=== PATIENT | male | born 1975 | race Caucasian/White ===

== ENCOUNTER 2018-03-16 09:43 | Inpatient (IN) | payer OTHER ==
[2018-03-16 10:20] VITALS: BMI 26.9
--- NOTE | 2018-03-16 11:09 | HP ---
COWS - Scale Resting Pulse: 0= [place] 80 or Below Sweatin= Chills/Flushing Restless Observation: 0= Sits Still Pupil Size: 0= Normal to Room Light Bone or Joint Aches: 1= Mild Discomfort Runny Nose/ Eye Tearin= Nasal Congestion GI Upset > 30mins: 2= Nausea/Diarrhea Tremor Observation: 2= Slight Tremor Visible Yawning Observation: 1= 1-2x During Session Anxiety or Irritability: 1=Feels Anxious/Irritable Goose Flesh Skin: 0=Smooth Skin COWS Score: 9 Admission ROS S - HPI Chief Complaint: I'm tired, I want to stop using Allergies/Adverse Reactions: Allergies Allergy/AdvReac Type Severity Reaction Status Date / Time divalproex sodium Allergy Verified 03/16/18 10:59 [From Depakote] fish derived Allergy Verified 03/16/18 10:59 History of Present Illness: 42 yo gentleman here for detox from opiates - first time here. Indicated he was in [facility] with IV antibiotics for wound care in foot related IV drug use - he states it was in January and the [facility]NS has been coming to change his dressing daily. Denies seizures, does have black outs, denies drinking alcohol. States he was in a methadone program but left it and used heroin and bought methadone on street but wants to go back to the program. Exam Limitations: Clinical Condition, Physical Impairment - Ebola screening Have you traveled outside of the country in the last 21 days: No (N) Have you had contact with anyone from an Ebola affected area: No Have you been sick,other than usual withdrawal symptoms: No Do you have a fever: No - Review of Systems Constitutional: Loss of Appetite, Malaise, Changes in sleep, Weakness EENT: reports: Nose Congestion Respiratory: reports: No Symptoms reported Cardiac: reports: No Symptoms Reported GI: reports: Nausea, Poor Appetite : reports: Dysuria Musculoskeletal: reports: Back Pain, Muscle Pain Integumentary: reports: Dryness, Other (left foot wound; flaky skin both hands and legs) Neuro: reports: Headache, Tremors Endocrine: reports: No Symptoms Reported Hematology: reports: No Symptoms Reported Psychiatric: reports: Judgement Intact, Mood/Affect Appropiate, Anxious Other Systems: Reviewed and Negative Patient History - Patient Medical History Hx Asthma: No Hx Cardiac Disorders: No Hx Hypertension: Yes Hx Hypercholesterolemia: No Hx Pacemaker: No Hx Seizures: No Hx Diabetes: Yes (oral meds, [id number]) Hx Gastrointestinal Disorders: No Hx Liver Disease: Yes (untreated hepatitis C) Hx Genitourinary Disorders: No Hx Sexually Transmitted Disorders: No Hx Renal Disease (ESRD): No Hx Thyroid Disease: No Hx Human Immunodeficiency Virus (HIV): No Hx Hepatitis C: Yes (never treated) Hx Depression: No Hx Suicide Attempt: No Hx Bipolar Disorder: No Hx Schizophrenia: Yes - Patient Surgical History Past Surgical History: Yes Hx Orthopedic Surgery: Yes (L FOOT SX (ABSCESS DUE INF NEEDLE)) - PPD History Previous Implant?: Yes Documented Results: Negative w/o proof Implanted On Prior [facility] Admission?: No PPD to be Administered?: Yes - Reproductive History Patient is a Female of Child Bearing Age (11 -55 yrs old): No (male) - Smoking Cessation Smoking history: Current every day smoker Have you smoked in the past 12 months: Yes Aproximately how many cigarettes per day: 10 Initiated information on smoking cessation: Yes 'Breaking Loose' booklet given: 03/16/18 (give on floor) - Substances Abused Cocaine Route: Smoking Frequency: Daily Amount used: 5 BAGS Age of first use: 20 Date of Last Use: 03/09/18 Heroin Route: Injection Frequency: Daily Amount used: 10 BAGS Age of first use: 15 Date of Last Use: 03/09/18 Non-Rx Methadone Route: Oral Frequency: 3-6 times per week Amount used: 40MG Age of first use: 20 Date of Last Use: 03/15/18 Family Disease History - Family Disease History Family Disease History: Diabetes: Mother (living, ), Heart Disease: Father ( - ), Mother, Other: Father, Mother, Brother (two healthy), Sister (two healthy), Daughter (four - healthy) Admission Physical Exam BHS - Vital Signs Vital Signs: Vital Signs - 24 hr 03/16/18 10:18 Temperature 98.8 F Pulse Rate 78 Respiratory 18 Rate Blood Pressure 122/71 - Physical General Appearance: Yes: Nourished, Appropriately Dressed, Moderate Distress, Tremorous, Anxious HEENTM: Yes: EOMI, Hearing grossly Normal, Normocephalic, Normal Voice, Pharynx Normal Respiratory: Yes: Normal Breath Sounds, No Respiratory Distress Neck: Yes: No masses,lesions,Nodules, Supple Breast: Yes: Breast Exam Deferred Cardiology: Yes: Regular Rhythm, Regular Rate Abdominal: Yes: Soft Genitourinary: Yes: Dysuria Back: Yes: Normal Inspection Musculoskeletal: Yes: Gait Steady, Back pain, Muscle Pain Extremities: Yes: Normal Range of Motion, Pedal Edema, Other (left foot with bandage - serena wrap - large triangular metatarsal wound - stage II - granulating tissue with serosanguinous exudate; dorsal aspects of both hands with old, healed abscesses) Neurological: Yes: Fully Oriented, Alert, Motor Strength 5/5, Normal Mood/Affect , Normal Response Integumentary: Yes: Dry, Warm, Track [place] (both arms, neck, hands), Other ( left foot wound, cast boot) Lymphatic: Yes: Within Normal Limits - Addiitonal Findings: CLH=[id number] - Diagnostic (1) Opioid dependence with withdrawal Current Visit: Yes Status: Chronic (2) Nicotine dependence Current Visit: Yes Status: Chronic Qualifiers: Nicotine product type: cigarettes Substance use status: uncomplicated Qualified Code(s): F17.210 - Nicotine dependence, cigarettes, uncomplicated (3) Diabetes mellitus treated with oral medication Current Visit: Yes Status: Chronic (4) Open wound of left foot Current Visit: Yes Status: Acute Qualifiers: Encounter type: subsequent encounter Qualified Code(s): S91.302D - Unspecified open wound, left foot, subsequent encounter (5) Dry skin Current Visit: Yes Status: Chronic (6) Hepatitis C Current Visit: Yes Status: Acute Qualifiers: Viral hepatitis chronicity: chronic Hepatic coma status: without hepatic coma Qualified Code(s): B18.2 - Chronic viral hepatitis C Cleared for Admission [facility] - Detox or Rehab [facility] Level of Care: Medically Managed Detox Regimen/Protocol: Methadone [facility] Breath Alcohol Content Breath Alcohol Content: 0 Urine Drug Screen - Results Drug Screen Negative: No Urine Drug Screen Results: MTD-Methadone
[2018-03-16] MEDS ORDERED: MENTHOL/PHENOL 1 EACH UD MM PRN (11:27)
[2018-03-16] MEDS ORDERED: MAGNESIUM CITRATE 300 ML BOTTLE PO PRN (11:27)
[2018-03-16] MEDS ORDERED: LOPERAMIDE HCL 2 MG CAPSULE PO PRN (11:27)
[2018-03-16] MEDS ORDERED: MAGNESIUM HYDROX 2400MG/30ML ORAL SUSPENSION 30 ML CUP PO PRN (11:27)
[2018-03-16] MEDS ORDERED: P-EPHED 60MG/TRIPROLIDI 2.5MG TABLET PO PRN (11:27)
[2018-03-16] MEDS ORDERED: MAG HYDROX/AL HYDROX/SIMETH 30 ML UNIT-DOSE CUP PO PRN (11:27)
[2018-03-16] MEDS ORDERED: guaiFENesin/D-METHORPHAN HB 10 ML UNIT-DOSE CUPS PO PRN (11:27)
[2018-03-16] MEDS ORDERED: metFORMIN HCL 500 MG TABLET (FP) PO SCH (11:30)
[2018-03-16] MEDS ORDERED: COLLOIDAL OATMEAL 1 BAR EACH TP PRN (11:36)
[2018-03-16] MEDS ORDERED: METHADONE HCL 10 MG TABLET (FOR DETOX USE ONLY) PO ONE ×2 (12:30→23:00)
[2018-03-16] MEDS: IBUPROFEN 400 MG TABLET (FP) PO PRN (12:36)
[2018-03-16] MEDS: NICOTINE 21 MG/24 HOURS TOPICAL PATCH TD SCH (12:37)
[2018-03-16 21:02] LABS: URINE APPEARANCE SLCLOUDY; URINE BILIRUBIN NEGATIVE (<2.0 mg/dL); URINE COLOR DKYELLOW; URINE GLUCOSE (UA) NEGATIVE (NEGATIVE); URINE KETONE NEGATIVE (NEGATIVE); URINE LEUK ESTERASE NEGATIVE (NEGATIVE); URINE NITRITE NEGATIVE (NEGATIVE); URINE PROTEIN NEGATIVE (NEGATIVE); URINE UROBILINOGEN 4.0 E.U/dl mg/dL (0.2-1.0)
[2018-03-16] MEDS ORDERED: MELATONIN 5 MG TABLETS PO PRN (22:00)
[2018-03-16] MEDS: THIAMINE HCL 100 MG TABLET (FP) PO SCH (22:29)
[2018-03-16] MEDS: diazePAM 5 MG TABLET PO PRN (22:30)
[2018-03-17] MEDS: diazePAM 5 MG TABLET PO PRN ×4 (06:29→22:35)
[2018-03-17] MEDS: metFORMIN HCL 500 MG TABLET (FP) PO SCH ×2 (06:30→17:14)
[2018-03-17] MEDS ORDERED: METHADONE HCL 10 MG TABLET (FOR DETOX USE ONLY) PO ONE (10:00)
[2018-03-17] MEDS: PRENATAL VITAMINS W/ FOLIC ACID TABLET (FP) PO SCH (11:05)
[2018-03-17] MEDS: NICOTINE 21 MG/24 HOURS TOPICAL PATCH TD SCH (11:06)
[2018-03-17 11:22] LABS: HEMATOCRIT 34.5 % (35.4-49); HEMOGLOBIN 11.6 GM/dL (11.7-16.9); MCHC 33.6 g/dl (32.0-35.9); MEAN CELL VOLUME 95.2 fl (80-96); MEAN PLT VOLUME 9.6 fl (7.5-11.1); PLATELET COUNT 140 K/MM3 (134-434); RBC 3.63 M/mm3 (4.00-5.60); RDW 14.2 % (11.9-15.9); WHITE BLOOD COUNT 3.5 K/mm3 (4.0-10.0)
[2018-03-17 11:26] LABS: ALBUMIN 3.4 g/dl (3.4-5.0); ALK PHOS 140 U/L (45-117); ANION GAP 9 MMOL/L (8-16); BILIRUBIN,TOTAL 0.5 mg/dL (0.2-1); BLOOD UREA NITROGEN 12 mg/dL (7-18); CALCIUM 8.8 mg/dL (8.5-10.1); CHLORIDE 100 mmol/L (98-107); CO2 26 mmol/L (21-32); CREATININE 0.8 mg/dL (0.55-1.3); GLUCOSE,RANDOM 147 mg/dL (74-106); POTASSIUM 4.1 mmol/L (3.5-5.1); SGOT/AST 24 U/L (15-37); SGPT/ALT 36 U/L (13-61); SODIUM 136 mmol/L (136-145); TOT PROT 8.1 g/dl (6.4-8.2)
[2018-03-17] MEDS: IBUPROFEN 400 MG TABLET (FP) PO PRN (12:02)
--- NOTE | 2018-03-17 14:56 | PN ---
BHS COWS - Scale Resting Pulse: 0= [place] 80 or Below Sweatin= Chills/Flushing Restless Observation: 1= Difficult to Sit Still Pupil Size: 1= Pupils >than Normal Bone or Joint Aches: 1= Mild Discomfort Runny Nose/ Eye Tearin= Nasal Congestion GI Upset > 30mins: 0= None Tremor Observation of Outstretched Hands: 1= Tremor [place], Not Seen Yawning Observation: 1= 1-2x During Session Anxiety or Irritability: 1=Feels Anxious/Irritable Goose Flesh Skin: 0=Smooth Skin COWS Score: 8 S Progress Note (SOAP) Subjective: ambulate with walker left foot dorsal D+C x 2 weeks ago due to IV heroin dressing clean and intact dry flaky skin continue wet to dry dressing change bid as ordered body aches joints pain tremor Objective: 03/17/18 15:01 Vital Signs Temperature 98.2 F 03/17/18 14:15 Pulse Rate 78 03/17/18 14:15 Respiratory Rate 20 03/17/18 14:15 Blood Pressure 126/70 03/17/18 14:15 O2 Sat by Pulse Oximetry (%) Laboratory Last Values WBC 3.5 K/mm3 (4.0-10.0) L 03/17/18 07:35 RBC 3.63 M/mm3 (4.00-5.60) L 03/17/18 07:35 Hgb 11.6 GM/dL (11.7-16.9) L 03/17/18 07:35 Hct 34.5 % (35.4-49) L 03/17/18 07:35 MCV 95.2 fl (80-96) 03/17/18 07:35 MCH 32.0 pg (25.7-33.7) 03/17/18 07:35 MCHC 33.6 g/dl (32.0-35.9) 03/17/18 07:35 RDW 14.2 % (11.9-15.9) 03/17/18 07:35 Plt Count 140 K/MM3 (134-434) 03/17/18 07:35 MPV 9.6 fl (7.5-11.1) 03/17/18 07:35 Sodium 136 mmol/L (136-145) 03/17/18 07:35 Potassium 4.1 mmol/L (3.5-5.1) 03/17/18 07:35 Chloride 100 mmol/L (98-107) 03/17/18 07:35 Carbon Dioxide 26 mmol/L (21-32) 03/17/18 07:35 Anion Gap 9 MMOL/L (8-16) 03/17/18 07:35 BUN 12 mg/dL (7-18) 03/17/18 07:35 Creatinine 0.8 mg/dL (0.55-1.3) 03/17/18 07:35 Creat Clearance w eGFR > 60 (>60) 03/17/18 07:35 POC Glucometer 111 UNITS (80-120) 03/17/18 06:27 Random Glucose 147 mg/dL (74-106) H 03/17/18 07:35 Calcium 8.8 mg/dL (8.5-10.1) 03/17/18 07:35 Total Bilirubin 0.5 mg/dL (0.2-1) 03/17/18 07:35 AST 24 U/L (15-37) 03/17/18 07:35 ALT 36 U/L (13-61) 03/17/18 07:35 Alkaline Phosphatase 140 U/L (45-117) H 03/17/18 07:35 Total Protein 8.1 g/dl (6.4-8.2) 03/17/18 07:35 Albumin 3.4 g/dl (3.4-5.0) 03/17/18 07:35 Urine Color Dkyellow 03/16/18 14:46 Urine Appearance Slcloudy 03/16/18 14:46 Urine pH 7.0 (5.0-8.0) 03/16/18 14:46 Ur Specific [place] 1.027 (1.010-1.035) 03/16/18 14:46 Urine Protein Negative (NEGATIVE) 03/16/18 14:46 Urine Glucose (UA) Negative (NEGATIVE) 03/16/18 14:46 Urine Ketones Negative (NEGATIVE) 03/16/18 14:46 Urine Blood Negative (NEGATIVE) 03/16/18 14:46 Urine Nitrite Negative (NEGATIVE) 03/16/18 14:46 Urine Bilirubin Negative (<2.0 mg/dL) 03/16/18 14:46 Urine Urobilinogen 4.0 e.u/dl mg/dL (0.2-1.0) 03/16/18 14:46 Ur Leukocyte Esterase Negative (NEGATIVE) 03/16/18 14:46 RPR Titer Nonreactive (NONREACTIVE) 03/17/18 07:35 lab noted discuss poorly controlled serum glycemia related slow heal would Assessment: 03/17/18 15:05 withdrawal sx 03/17/18 15:06 left foot IV heroin site would care Plan: continue detox continue dressing change
[2018-03-17] MEDS: MINERAL OIL/PETROLAT/WATER TOPICAL CREAM 113 GM JAR TP SCH (15:40)
--- NOTE | 2018-03-17 19:40 | EKG ---
Test Reason : Blood Pressure : / mmHG Vent. Rate : 073 BPM Atrial Rate : 073 BPM P-R Int : 156 ms QRS Dur : 078 ms QT Int : 366 ms P-R-T Axes : 057 018 038 degrees QTc Int : 403 ms NORMAL SINUS RHYTHM NORMAL ECG NO PREVIOUS ECGS AVAILABLE Confirmed by JAIME ZHU MD ([id number]) on 03/17/2018 7:40:12 PM Referred By: Confirmed By:JAMIE ZHU MD
[2018-03-17] MEDS: THIAMINE HCL 100 MG TABLET (FP) PO SCH (22:35)
[2018-03-18] MEDS: diazePAM 5 MG TABLET PO PRN ×4 (05:59→22:29)
[2018-03-18] MEDS: metFORMIN HCL 500 MG TABLET (FP) PO SCH ×2 (06:00→16:51)
[2018-03-18] MEDS ORDERED: METHADONE HCL 5 MG TABLET (FOR DETOX USE ONLY) PO ONE (10:00)
[2018-03-18] MEDS: PRENATAL VITAMINS W/ FOLIC ACID TABLET (FP) PO SCH (10:41)
[2018-03-18] MEDS: MINERAL OIL/PETROLAT/WATER TOPICAL CREAM 113 GM JAR TP SCH (10:42)
[2018-03-18] MEDS: NICOTINE 21 MG/24 HOURS TOPICAL PATCH TD SCH (10:42)
--- NOTE | 2018-03-18 14:46 | PN ---
BHS COWS - Scale Resting Pulse: 2= [place] 101-120 Sweatin= Chills/Flushing Restless Observation: 0= Sits Still Pupil Size: 0= Normal to Room Light Bone or Joint Aches: 0= None Runny Nose/ Eye Tearin= Nasal Congestion GI Upset > 30mins: 0= None Tremor Observation of Outstretched Hands: 2= Slight Tremor Visible Yawning Observation: 1= 1-2x During Session Anxiety or Irritability: 0= None Goose Flesh Skin: 3=Piloerection COWS Score: 10 BHS Progress Note (SOAP) Subjective: Fatigue, Tremors, Interrupted Sleep. Objective: PATIENT A & O X 3. IN NO ACUTE DISTRESS. 03/18/18 14:43 Vital Signs Temperature 98.2 F 03/18/18 13:24 Pulse Rate 101 H 03/18/18 13:24 Respiratory Rate 20 03/18/18 13:24 Blood Pressure 136/72 03/18/18 13:24 O2 Sat by Pulse Oximetry (%) Laboratory Tests 03/16/18 03/16/18 03/16/18 11:39 14:46 16:49 WBC RBC Hgb Hct MCV MCH MCHC RDW Plt Count MPV Sodium Potassium Chloride Carbon Dioxide Anion Gap BUN Creatinine Creat Clearance w eGFR POC Glucometer 135 118 Random Glucose Calcium Total Bilirubin AST ALT Alkaline Phosphatase Total Protein Albumin Urine Color Dkyellow Urine Appearance Slcloudy Urine pH 7.0 Ur Specific [place] 1.027 Urine Protein Negative Urine Glucose (UA) Negative Urine Ketones Negative Urine Blood Negative Urine Nitrite Negative Urine Bilirubin Negative Urine Urobilinogen 4.0 e.u/dl Ur Leukocyte Esterase Negative RPR Titer 03/17/18 03/17/18 03/17/18 06:27 07:35 07:35 WBC 3.5 L RBC 3.63 L Hgb 11.6 L Hct 34.5 L MCV 95.2 MCH 32.0 MCHC 33.6 RDW 14.2 Plt Count 140 MPV 9.6 Sodium 136 Potassium 4.1 Chloride 100 Carbon Dioxide 26 Anion Gap 9 BUN 12 Creatinine 0.8 Creat Clearance w eGFR > 60 POC Glucometer 111 Random Glucose 147 H Calcium 8.8 Total Bilirubin 0.5 AST 24 ALT 36 Alkaline Phosphatase 140 H Total Protein 8.1 Albumin 3.4 Urine Color Urine Appearance Urine pH Ur Specific [place] Urine Protein Urine Glucose (UA) Urine Ketones Urine Blood Urine Nitrite Urine Bilirubin Urine Urobilinogen Ur Leukocyte Esterase RPR Titer 03/17/18 03/17/18 03/18/18 07:35 16:47 05:57 WBC RBC Hgb Hct MCV MCH MCHC RDW Plt Count MPV Sodium Potassium Chloride Carbon Dioxide Anion Gap BUN Creatinine Creat Clearance w eGFR POC Glucometer 119 116 Random Glucose Calcium Total Bilirubin AST ALT Alkaline Phosphatase Total Protein Albumin Urine Color Urine Appearance Urine pH Ur Specific [place] Urine Protein Urine Glucose (UA) Urine Ketones Urine Blood Urine Nitrite Urine Bilirubin Urine Urobilinogen Ur Leukocyte Esterase RPR Titer Nonreactive LABS NOTED. Assessment: 03/18/18 14:44 WITHDRAWAL SYMPTOMS. ANEMIA. LEUKOPENIA. 03/18/18 14:45 Plan: CONTINUE DETOX. INCREASE DAILY PO FLUID INTAKE. ENCOURAGE AMBULATION.
[2018-03-18] MEDS: THIAMINE HCL 100 MG TABLET (FP) PO SCH (22:29)
[2018-03-19] MEDS: metFORMIN HCL 500 MG TABLET (FP) PO SCH ×2 (07:44→17:00)
[2018-03-19] MEDS ORDERED: METHADONE HCL 5 MG TABLET (FOR DETOX USE ONLY) PO ONE (10:00)
[2018-03-19] MEDS: IBUPROFEN 400 MG TABLET (FP) PO PRN (10:19)
[2018-03-19] MEDS: PRENATAL VITAMINS W/ FOLIC ACID TABLET (FP) PO SCH (10:19)
[2018-03-19] MEDS: NICOTINE 21 MG/24 HOURS TOPICAL PATCH TD SCH (10:19)
[2018-03-19] MEDS: MINERAL OIL/PETROLAT/WATER TOPICAL CREAM 113 GM JAR TP SCH ×2 (10:20→14:00)
[2018-03-19] MEDS: diazePAM 5 MG TABLET PO PRN (10:20)
--- NOTE | 2018-03-19 13:21 | PN ---
S Progress Note (SOAP) Subjective: Interrupted Sleep, Body Aches. Objective: PATIENT A & O X 3. IN NO ACUTE DISTRESS. WOUND (INJECTION SITE) ON DORSUM OF LEFT FOOT NOTED TO BE HEALING WELL - MAINTAIN CURRENT WOUND CARE REGIMEN. INJECTION SITE WOUNDS NOTED ON DORSUM OF BILATERAL HANDS. NO SWELLING, ERYTHEMA , SIGNS OF INFECTION NOTED AT EITHER SITE. 03/19/18 13:16 Vital Signs Temperature 97.7 F 03/19/18 09:42 Pulse Rate 85 03/19/18 09:42 Respiratory Rate 18 03/19/18 09:42 Blood Pressure 124/67 03/19/18 09:42 O2 Sat by Pulse Oximetry (%) Laboratory Tests 03/16/18 03/16/18 03/16/18 11:39 14:46 16:49 WBC RBC Hgb Hct MCV MCH MCHC RDW Plt Count MPV Sodium Potassium Chloride Carbon Dioxide Anion Gap BUN Creatinine Creat Clearance w eGFR POC Glucometer 135 118 Random Glucose Calcium Total Bilirubin AST ALT Alkaline Phosphatase Total Protein Albumin Urine Color Dkyellow Urine Appearance Slcloudy Urine pH 7.0 Ur Specific [place] 1.027 Urine Protein Negative Urine Glucose (UA) Negative Urine Ketones Negative Urine Blood Negative Urine Nitrite Negative Urine Bilirubin Negative Urine Urobilinogen 4.0 e.u/dl Ur Leukocyte Esterase Negative RPR Titer 03/17/18 03/17/18 03/17/18 06:27 07:35 07:35 WBC 3.5 L RBC 3.63 L Hgb 11.6 L Hct 34.5 L MCV 95.2 MCH 32.0 MCHC 33.6 RDW 14.2 Plt Count 140 MPV 9.6 Sodium 136 Potassium 4.1 Chloride 100 Carbon Dioxide 26 Anion Gap 9 BUN 12 Creatinine 0.8 Creat Clearance w eGFR > 60 POC Glucometer 111 Random Glucose 147 H Calcium 8.8 Total Bilirubin 0.5 AST 24 ALT 36 Alkaline Phosphatase 140 H Total Protein 8.1 Albumin 3.4 Urine Color Urine Appearance Urine pH Ur Specific [place] Urine Protein Urine Glucose (UA) Urine Ketones Urine Blood Urine Nitrite Urine Bilirubin Urine Urobilinogen Ur Leukocyte Esterase RPR Titer 03/17/18 03/17/18 03/18/18 07:35 16:47 05:57 WBC RBC Hgb Hct MCV MCH MCHC RDW Plt Count MPV Sodium Potassium Chloride Carbon Dioxide Anion Gap BUN Creatinine Creat Clearance w eGFR POC Glucometer 119 116 Random Glucose Calcium Total Bilirubin AST ALT Alkaline Phosphatase Total Protein Albumin Urine Color Urine Appearance Urine pH Ur Specific [place] Urine Protein Urine Glucose (UA) Urine Ketones Urine Blood Urine Nitrite Urine Bilirubin Urine Urobilinogen Ur Leukocyte Esterase RPR Titer Nonreactive 03/18/18 03/19/18 03/19/18 16:25 07:40 11:17 WBC RBC Hgb Hct MCV MCH MCHC RDW Plt Count MPV Sodium Potassium Chloride Carbon Dioxide Anion Gap BUN Creatinine Creat Clearance w eGFR POC Glucometer 126 98 76 Random Glucose Calcium Total Bilirubin AST ALT Alkaline Phosphatase Total Protein Albumin Urine Color Urine Appearance Urine pH Ur Specific [place] Urine Protein Urine Glucose (UA) Urine Ketones Urine Blood Urine Nitrite Urine Bilirubin Urine Urobilinogen Ur Leukocyte Esterase RPR Titer LABS NOTED. 03/19/18 13:17 Assessment: 03/19/18 13:19 WITHDRAWAL SYMPTOMS. Plan: CONTINUE DETOX. INCREASE DAILY PO FLUID INTAKE. MAINTAIN CURRENT WOUND CARE REGIMEN (WET-TO-DRY) DRESSING FOR INJECTION SITE WOUND ON LEFT FOOT.
[2018-03-19] MEDS: BACITRACIN 0.9 GM PACKET TP SCH ×2 (14:00→22:54)
--- NOTE | 2018-03-19 14:08 | CONSULT ---
[facility] Psychiatric Consult - Data Date of interview: 03/19/18 Admission source: [facility] Identifying data: Patient is a 42 year old single male, without chilren, unemployed, and currently homeless. This is patient's first admission to detox at [facility]. Patient admitted to for opioid dependence. Substance Abuse History: Smoking Cessation. Smoking history: Current every day smoker. Have you smoked in the past 12 months: Yes. Aproximately how many cigarettes per day: 10. Initiated information on smoking cessation: Yes. ' Breaking Loose' booklet given: 03/16/18 (give on floor). - Substances Abused. Cocaine. Route: Smoking. Frequency: Daily. Amount used: 5 BAGS. Age of first use: 20. Date of Last Use: 03/09/18. Heroin. Route: Injection. Frequency: Daily. Amount used: 10 BAGS. Age of first use: 15. Date of Last Use: 03/09/18. Non-Rx Methadone. Route: Oral. Frequency: 3-6 times per week. Amount used: 40MG. Age of first use: 20. Date of Last Use: 03/15/18 Medical History: Hypertension, diabetes, Hep C, Left foot surgery Psychiatric History: Patient reports multiple psychatric hospitalizations, most recently at [facility]. He is also known to [facility], [place] and [facility] in [place], [place]. States he has been prescribed klonopin, ambien, and seroquel in the past. He denies current outpatient psychiatric care. At present he reports difficulty sleeping. Physical/Sexual Abuse/Trauma History: denies. Mental Status Exam - Mental Status Exam Alert and Oriented to: Time (Patient ambulates with a cane. Had a procedure done to his left foot last month.), Place, Person Cognitive Function: Good Patient Appearance: Well Groomed Mood: Euthymic Affect: Mood Congruent Patient Behavior: Cooperative Speech Pattern: Clear, Appropriate Voice Loudness: Normal Thought Process: Intact, Goal Oriented Thought Disorder: Not Present Hallucinations: Denies Suicidal Ideation: Denies Homicidal Ideation: Denies Insight/Judgement: Poor Sleep: Poorly Appetite: Fair Muscle strength/Tone: Normal Gait/Station: Other Psychiatric Findings - Problem List ([place] 1, 2,3) (1) Substance-induced sleep disorder Current Visit: Yes Status: Acute (2) Nicotine dependence Current Visit: Yes Status: Chronic Qualifiers: Nicotine product type: cigarettes Substance use status: uncomplicated Qualified Code(s): F17.210 - Nicotine dependence, cigarettes, uncomplicated (3) Opioid dependence with withdrawal Current Visit: Yes Status: Acute - Initial Treatment Plan Initial Treatment Plan: Psychoeducation provided. Detoxification in progress. Will order Seroquel 50mg qhs. Mr. Simmons reports favorable effects from previously accepting seroquel. Benefits and side effects discussed. Verbal consent given.
[2018-03-19] MEDS: QUEtiapine FUMARATE 50 MG TABLET PO SCH (22:27)
[2018-03-19] MEDS: THIAMINE HCL 100 MG TABLET (FP) PO SCH (22:27)
[2018-03-20] MEDS: metFORMIN HCL 500 MG TABLET (FP) PO SCH ×2 (07:55→16:43)
[2018-03-20] MEDS ORDERED: METHADONE HCL 10 MG TABLET (FOR DETOX USE ONLY) PO ONE (10:00)
[2018-03-20] MEDS: PRENATAL VITAMINS W/ FOLIC ACID TABLET (FP) PO SCH (10:26)
[2018-03-20] MEDS: BACITRACIN 0.9 GM PACKET TP SCH ×2 (10:27→22:48)
[2018-03-20] MEDS: NICOTINE 21 MG/24 HOURS TOPICAL PATCH TD SCH (10:27)
[2018-03-20] MEDS: MINERAL OIL/PETROLAT/WATER TOPICAL CREAM 113 GM JAR TP SCH (10:27)
--- NOTE | 2018-03-20 10:42 | PN ---
BHS Progress Note (SOAP) Subjective: Interrupted Sleep, Body Aches. Objective: PATIENT A & O X 3. IN NO ACUTE DISTRESS. NO SIGNS OF INFECTION NOTED AT SITE OF WOUND ON DORSUM OF LEFT FOOT. PATIENT DENIES PAIN AT SITE. 03/20/18 10:42 Vital Signs Temperature 98.1 F 03/20/18 09:15 Pulse Rate 95 H 03/20/18 09:15 Respiratory Rate 18 03/20/18 09:15 Blood Pressure 121/73 03/20/18 09:15 O2 Sat by Pulse Oximetry (%) Laboratory Tests 03/16/18 03/16/18 03/16/18 11:39 14:46 16:49 WBC RBC Hgb Hct MCV MCH MCHC RDW Plt Count MPV Sodium Potassium Chloride Carbon Dioxide Anion Gap BUN Creatinine Creat Clearance w eGFR POC Glucometer 135 118 Random Glucose Calcium Total Bilirubin AST ALT Alkaline Phosphatase Total Protein Albumin Urine Color Dkyellow Urine Appearance Slcloudy Urine pH 7.0 Ur Specific [place] 1.027 Urine Protein Negative Urine Glucose (UA) Negative Urine Ketones Negative Urine Blood Negative Urine Nitrite Negative Urine Bilirubin Negative Urine Urobilinogen 4.0 e.u/dl Ur Leukocyte Esterase Negative RPR Titer 03/17/18 03/17/18 03/17/18 06:27 07:35 07:35 WBC 3.5 L RBC 3.63 L Hgb 11.6 L Hct 34.5 L MCV 95.2 MCH 32.0 MCHC 33.6 RDW 14.2 Plt Count 140 MPV 9.6 Sodium 136 Potassium 4.1 Chloride 100 Carbon Dioxide 26 Anion Gap 9 BUN 12 Creatinine 0.8 Creat Clearance w eGFR > 60 POC Glucometer 111 Random Glucose 147 H Calcium 8.8 Total Bilirubin 0.5 AST 24 ALT 36 Alkaline Phosphatase 140 H Total Protein 8.1 Albumin 3.4 Urine Color Urine Appearance Urine pH Ur Specific [place] Urine Protein Urine Glucose (UA) Urine Ketones Urine Blood Urine Nitrite Urine Bilirubin Urine Urobilinogen Ur Leukocyte Esterase RPR Titer 03/17/18 03/17/18 03/18/18 07:35 16:47 05:57 WBC RBC Hgb Hct MCV MCH MCHC RDW Plt Count MPV Sodium Potassium Chloride Carbon Dioxide Anion Gap BUN Creatinine Creat Clearance w eGFR POC Glucometer 119 116 Random Glucose Calcium Total Bilirubin AST ALT Alkaline Phosphatase Total Protein Albumin Urine Color Urine Appearance Urine pH Ur Specific [place] Urine Protein Urine Glucose (UA) Urine Ketones Urine Blood Urine Nitrite Urine Bilirubin Urine Urobilinogen Ur Leukocyte Esterase RPR Titer Nonreactive 03/18/18 03/19/18 03/19/18 16:25 07:40 11:17 WBC RBC Hgb Hct MCV MCH MCHC RDW Plt Count MPV Sodium Potassium Chloride Carbon Dioxide Anion Gap BUN Creatinine Creat Clearance w eGFR POC Glucometer 126 98 76 Random Glucose Calcium Total Bilirubin AST ALT Alkaline Phosphatase Total Protein Albumin Urine Color Urine Appearance Urine pH Ur Specific [place] Urine Protein Urine Glucose (UA) Urine Ketones Urine Blood Urine Nitrite Urine Bilirubin Urine Urobilinogen Ur Leukocyte Esterase RPR Titer 03/19/18 03/19/18 03/20/18 16:33 22:26 06:40 WBC RBC Hgb Hct MCV MCH MCHC RDW Plt Count MPV Sodium Potassium Chloride Carbon Dioxide Anion Gap BUN Creatinine Creat Clearance w eGFR POC Glucometer 109 132 111 Random Glucose Calcium Total Bilirubin AST ALT Alkaline Phosphatase Total Protein Albumin Urine Color Urine Appearance Urine pH Ur Specific [place] Urine Protein Urine Glucose (UA) Urine Ketones Urine Blood Urine Nitrite Urine Bilirubin Urine Urobilinogen Ur Leukocyte Esterase RPR Titer LABS NOTED. 03/20/18 10:43 Assessment: 03/20/18 10:43 WITHDRAWAL SYMPTOMS. LEUKOPENIA. ANEMIA. 03/20/18 10:45 Plan: CONTINUE DETOX. CONTINUE WOUND CARE FOR LEFT FOOT DIRECTED. PATIENT SCHEDULED FOR D/C TOMORROW .
[2018-03-20] MEDS: IBUPROFEN 400 MG TABLET (FP) PO PRN (14:12)
[2018-03-20] MEDS: ACETAMINOPHEN 325 MG TABLET (FP) PO PRN (18:16)
[2018-03-20] MEDS ORDERED: IBUPROFEN 400 MG TABLET (FP) PO PRN (22:23)
--- NOTE | 2018-03-20 22:38 | PN ---
[facility] Progress Note Note: S: Patient dangling foot over side of bed and states foot hurts a lot. Sharp, throbbing pain is a "10". States wound is the result of injection drug use. O: Aries bandage and dressing removed. Open wound dorsum (L) foot, andressa shape approx 11 cm x 7 cm, with bright beefy red granulation tissue w/ sero- sanguineous drainage. (L) pedal pulse present. C/o tenderness upon palpation. Foot w/taut edema. Cap refill > 5 sec. Foot color of (L) foot darker than (R). Ambulating steadily with use of a walker. Vital Signs 03/20/18 03/20/18 17:06 21:24 Temperature 98.2 F 98.1 F Pulse Rate 87 88 Respiratory 18 18 Rate Blood Pressure 114/67 115/72 CBC WBC 3.5 K/mm3 (4.0-10.0) L 03/17/18 07:35 RBC 3.63 M/mm3 (4.00-5.60) L 03/17/18 07:35 Hgb 11.6 GM/dL (11.7-16.9) L 03/17/18 07:35 Hct 34.5 % (35.4-49) L 03/17/18 07:35 MCV 95.2 fl (80-96) 03/17/18 07:35 MCH 32.0 pg (25.7-33.7) 03/17/18 07:35 MCHC 33.6 g/dl (32.0-35.9) 03/17/18 07:35 RDW 14.2 % (11.9-15.9) 03/17/18 07:35 Plt Count 140 K/MM3 (134-434) 03/17/18 07:35 MPV 9.6 fl (7.5-11.1) 03/17/18 07:35 A: Open wound P: Explained that dangling foot increases swelling of foot and thereby increases pain. Wet to Dry gauze dressing w/ Normal Saline. Apply gauze roller bandage and loosely apply aries bandage. Encourage to keep foot elevated. Encourage f/u w/ [facility] and [facility] upon discharge. Increase ibuprofen to 800 mg.
[2018-03-20] MEDS: QUEtiapine FUMARATE 50 MG TABLET PO SCH (22:46)
[2018-03-20] MEDS: THIAMINE HCL 100 MG TABLET (FP) PO SCH (22:47)
[2018-03-21] MEDS ORDERED: METHADONE HCL 5 MG TABLET (FOR DETOX USE ONLY) PO ONE (06:00)
[2018-03-21] MEDS: metFORMIN HCL 500 MG TABLET (FP) PO SCH (07:32)
[2018-03-21] MEDS: PRENATAL VITAMINS W/ FOLIC ACID TABLET (FP) PO SCH (11:13)
[2018-03-21] MEDS: NICOTINE 21 MG/24 HOURS TOPICAL PATCH TD SCH (11:14)
[2018-03-21] MEDS: ACETAMINOPHEN 325 MG TABLET (FP) PO PRN (11:14)
[2018-03-21] MEDS: BACITRACIN 0.9 GM PACKET TP SCH (13:23)
[2018-03-21] MEDS: MINERAL OIL/PETROLAT/WATER TOPICAL CREAM 113 GM JAR TP SCH (13:23)
[2018-03-21 13:32] VITALS: BP 122/73; PULSE 85; TEMP 97.9
--- NOTE | 2018-03-21 15:43 | DS ---
[facility] Detox Discharge Summary Admission Date: 03/16/18 Discharge Date: 03/21/18 - History Present History: Opioid Dependence Additional Comments: PATIENT SCHEDULED FOR DISCHARGE FROM DETOX UNIT TO DAY. PATIENT GOING TO [facility] ([facility]) FOR AFTERCARE. PREVIOUS WOUND CARE INSTRUCTIONS FOR WOUND ON DORSUM OF LEFT FOOT THAT WERE DONE WHILE PATIENT WAS ADMITTED FOR DETOX TO BE CONTINUED WHILE PATIENT IS ADMITTED FOR REHAB. PATIENT TO BE EVALUATED BY MEDICAL PROVIDER IN 3-4 DAYS WHILE ON REHAB UNIT FOR FURTHER EVALUATION. PATIENT ADVISED TO FOLLOW-UP WITH [facility] (AGENCY THAT WAS PERFORMING WOUND CARE FOR PATIENT PRIOR TO ADMISSION TO DETOX UNIT) AFTER COMPLETION OF REHAB ADMISSION FOR FURTHER EVALUATION / CARE OF WOUND. PATIENT VERBALIZED UNDERSTANDING OF RECOMMENDATION. PATIENT WAS DISCHARGED FROM DETOX UNIT TO BE TAKEN OVER TO REHAB UNIT IN STABLE MEDICAL CONDITION. Pertinent Past History: Open Wound Of Left Foot, Hep C, Type II DM, HTN, Nicotine Dependence, Dry Skin. - Physical Exam Results Vital Signs: Vital Signs Temperature 97.9 F 03/21/18 13:31 Pulse Rate 85 03/21/18 13:31 Respiratory Rate 18 03/21/18 13:31 Blood Pressure 122/73 03/21/18 13:31 O2 Sat by Pulse Oximetry (%) Pertinent Admission Physical Exam Findings: WITHDRAWAL SYMPTOMS. Laboratory Tests 03/16/18 03/16/18 03/16/18 11:39 14:46 16:49 WBC RBC Hgb Hct MCV MCH MCHC RDW Plt Count MPV Sodium Potassium Chloride Carbon Dioxide Anion Gap BUN Creatinine Creat Clearance w eGFR POC Glucometer 135 118 Random Glucose Calcium Total Bilirubin AST ALT Alkaline Phosphatase Total Protein Albumin Urine Color Dkyellow Urine Appearance Slcloudy Urine pH 7.0 Ur Specific Freeman 1.027 Urine Protein Negative Urine Glucose (UA) Negative Urine Ketones Negative Urine Blood Negative Urine Nitrite Negative Urine Bilirubin Negative Urine Urobilinogen 4.0 e.u/dl Ur Leukocyte Esterase Negative RPR Titer 03/17/18 03/17/18 03/17/18 06:27 07:35 07:35 WBC 3.5 L RBC 3.63 L Hgb 11.6 L Hct 34.5 L MCV 95.2 MCH 32.0 MCHC 33.6 RDW 14.2 Plt Count 140 MPV 9.6 Sodium 136 Potassium 4.1 Chloride 100 Carbon Dioxide 26 Anion Gap 9 BUN 12 Creatinine 0.8 Creat Clearance w eGFR > 60 POC Glucometer 111 Random Glucose 147 H Calcium 8.8 Total Bilirubin 0.5 AST 24 ALT 36 Alkaline Phosphatase 140 H Total Protein 8.1 Albumin 3.4 Urine Color Urine Appearance Urine pH Ur Specific Freeman Urine Protein Urine Glucose (UA) Urine Ketones Urine Blood Urine Nitrite Urine Bilirubin Urine Urobilinogen Ur Leukocyte Esterase RPR Titer 03/17/18 03/17/18 03/18/18 07:35 16:47 05:57 WBC RBC Hgb Hct MCV MCH MCHC RDW Plt Count MPV Sodium Potassium Chloride Carbon Dioxide Anion Gap BUN Creatinine Creat Clearance w eGFR POC Glucometer 119 116 Random Glucose Calcium Total Bilirubin AST ALT Alkaline Phosphatase Total Protein Albumin Urine Color Urine Appearance Urine pH Ur Specific Freeman Urine Protein Urine Glucose (UA) Urine Ketones Urine Blood Urine Nitrite Urine Bilirubin Urine Urobilinogen Ur Leukocyte Esterase RPR Titer Nonreactive 03/18/18 03/19/18 03/19/18 16:25 07:40 11:17 WBC RBC Hgb Hct MCV MCH MCHC RDW Plt Count MPV Sodium Potassium Chloride Carbon Dioxide Anion Gap BUN Creatinine Creat Clearance w eGFR POC Glucometer 126 98 76 Random Glucose Calcium Total Bilirubin AST ALT Alkaline Phosphatase Total Protein Albumin Urine Color Urine Appearance Urine pH Ur Specific Freeman Urine Protein Urine Glucose (UA) Urine Ketones Urine Blood Urine Nitrite Urine Bilirubin Urine Urobilinogen Ur Leukocyte Esterase RPR Titer 03/19/18 03/19/18 03/20/18 16:33 22:26 06:40 WBC RBC Hgb Hct MCV MCH MCHC RDW Plt Count MPV Sodium Potassium Chloride Carbon Dioxide Anion Gap BUN Creatinine Creat Clearance w eGFR POC Glucometer 109 132 111 Random Glucose Calcium Total Bilirubin AST ALT Alkaline Phosphatase Total Protein Albumin Urine Color Urine Appearance Urine pH Ur Specific Freeman Urine Protein Urine Glucose (UA) Urine Ketones Urine Blood Urine Nitrite Urine Bilirubin Urine Urobilinogen Ur Leukocyte Esterase RPR Titer 03/20/18 03/21/18 03/21/18 16:36 00:35 05:51 WBC RBC Hgb Hct MCV MCH MCHC RDW Plt Count MPV Sodium Potassium Chloride Carbon Dioxide Anion Gap BUN Creatinine Creat Clearance w eGFR POC Glucometer 164 142 93 Random Glucose Calcium Total Bilirubin AST ALT Alkaline Phosphatase Total Protein Albumin Urine Color Urine Appearance Urine pH Ur Specific Freeman Urine Protein Urine Glucose (UA) Urine Ketones Urine Blood Urine Nitrite Urine Bilirubin Urine Urobilinogen Ur Leukocyte Esterase RPR Titer 03/21/18 11:23 WBC RBC Hgb Hct MCV MCH MCHC RDW Plt Count MPV Sodium Potassium Chloride Carbon Dioxide Anion Gap BUN Creatinine Creat Clearance w eGFR POC Glucometer 119 Random Glucose Calcium Total Bilirubin AST ALT Alkaline Phosphatase Total Protein Albumin Urine Color Urine Appearance Urine pH Ur Specific Freeman Urine Protein Urine Glucose (UA) Urine Ketones Urine Blood Urine Nitrite Urine Bilirubin Urine Urobilinogen Ur Leukocyte Esterase RPR Titer LABS NOTED. - Treatment Hospital Course: Detox Protocol Followed, Detoxed Safely, Responded well, Discharged Condition Good, Rehab Referral Accepted Patient has Accepted a Rehab Referral to: [facility] ([place], [place]). - Medication Discharge Medications: Ambulatory Orders Metformin HCl [Glucophage] 500 mg PO BID 03/16/18 Sertraline HCl [Zoloft] 50 mg PO DAILY 03/16/18 Zolpidem Tartrate [Ambien] 10 mg PO HS 03/16/18 Quetiapine Fumarate [Seroquel] 100 mg PO HS 03/21/18 - Diagnosis (1) Hepatitis C Status: Acute Qualifiers: Viral hepatitis chronicity: chronic Hepatic coma status: without hepatic coma Qualified Code(s): B18.2 - Chronic viral hepatitis C (2) Open wound of left foot Status: Acute Qualifiers: Encounter type: subsequent encounter Qualified Code(s): S91.302D - Unspecified open wound, left foot, subsequent encounter (3) Opioid dependence with withdrawal Status: Acute (4) Substance-induced sleep disorder Status: Acute (5) Diabetes mellitus treated with oral medication Status: Chronic (6) Dry skin Status: Chronic (7) Nicotine dependence Status: Chronic Qualifiers: Nicotine product type: cigarettes Substance use status: uncomplicated Qualified Code(s): F17.210 - Nicotine dependence, cigarettes, uncomplicated - AMA Did Patient Leave Against Medical Advice: No
== END 2018-03-21 14:30 | disposition other institution (70) | DRG 773 ==
LOC: YASAS 09:43 → Y6N 11:11
PROVIDERS: ADMIT Neuromusculoskeletal Medicine & OMM; ATTEND Neuromusculoskeletal Medicine & OMM
PROC: HZ2ZZZZ Detoxification Services for Substance Abuse Treatment (ICD-10-PCS; principal; 2018-03-16)
DX: F11.20 Opioid dependence, uncomplicated (principal); F17.210 Nicotine dependence, cigarettes, uncomplicated; F19.282 Other psychoactive substance dependence with psychoactive substance-induced sleep disorder; I10 Essential (primary) hypertension; E11.9 Type 2 diabetes mellitus without complications; Z79.84 Long term (current) use of oral hypoglycemic drugs; L85.3 Xerosis cutis; B18.2 Chronic viral hepatitis C; R26.89 Other abnormalities of gait and mobility; Z99.89 Dependence on other enabling machines and devices; S91.302D Unspecified open wound, left foot, subsequent encounter
CPT/HCPCS: 36415; 80053; 81003; 82962; 85027; 86593; 93005; 93010

== ENCOUNTER 2018-03-21 14:43 | Inpatient (IN) | payer OTHER ==
[2018-03-21 15:20] VITALS: BMI 26.9
[2018-03-21] MEDS ORDERED: MENTHOL/PHENOL 1 EACH UD MM PRN (15:48)
[2018-03-21] MEDS ORDERED: ACETAMINOPHEN 325 MG TABLET (FP) PO PRN (15:48)
[2018-03-21] MEDS ORDERED: LOPERAMIDE HCL 2 MG CAPSULE PO PRN (15:48)
[2018-03-21] MEDS ORDERED: MAGNESIUM HYDROX 2400MG/30ML ORAL SUSPENSION 30 ML CUP PO PRN (15:48)
[2018-03-21] MEDS ORDERED: P-EPHED 60MG/TRIPROLIDI 2.5MG TABLET PO PRN (15:48)
[2018-03-21] MEDS ORDERED: MAG HYDROX/AL HYDROX/SIMETH 30 ML UNIT-DOSE CUP PO PRN (15:48)
[2018-03-21] MEDS ORDERED: guaiFENesin/D-METHORPHAN HB 10 ML UNIT-DOSE CUPS PO PRN (15:48)
[2018-03-21] MEDS ORDERED: MAGNESIUM CITRATE 300 ML BOTTLE PO PRN (15:48)
--- NOTE | 2018-03-21 15:48 | HP ---
[facility] Rehab Assess/Revision - Admission History Admitted to Rehab from: [facility] Date of Admission to Rehab: 03/21/2018 - Vital signs Vital Signs: Vital Signs Period Temp Pulse Resp BP Sys/Warren Pulse Ox Last 24 Hr 98.0 F-98.0 F 90-90 18-18 113-113/68-68 - Findings Detox History & Physical reviewed: Yes Concur with findings: Yes Comments/Additional Findings: PATIENT'S MEDICAL / MEDICATION HISTORY REVIEWED PRIOR TO DISCHARGE FROM DETOX UNIT. PREVIOUS WOUND CARE INSTRUCTIONS FOR WOUND ON DORSUM OF LEFT FOOT THAT WERE DONE WHILE PATIENT WAS ADMITTED FOR DETOX TO BE CONTINUED WHILE PATIENT IS ADMITTED FOR REHAB. PATIENT TO BE EVALUATED BY COVERING MEDICAL PROVIDER IN 3-4 DAYS WHILE ON REHAB UNIT FOR FURTHER EVALUATION. PATIENT ADVISED TO FOLLOW-UP WITH [facility] (AGENCY THAT WAS PERFORMING WOUND CARE FOR PATIENT PRIOR TO ADMISSION TO DETOX UNIT) AFTER COMPLETION OF REHAB ADMISSION FOR FURTHER EVALUATION / CARE OF WOUND. PATIENT VERBALIZED UNDERSTANDING OF RECOMMENDATION. PATIENT WAS DISCHARGED FROM DETOX UNIT TO BE TAKEN TO REHAB UNIT IN STABLE MEDICAL CONDITION. Inpatient Rehab Admission - Initial Determination Are CD services needed?: Yes Free of communicable disease: Yes Not in need of hospitalization: Yes - Rehab Admission Criteria Comorbidities: Yes Patient is meeting Inpatient Rehab admission criteria:: Yes
[2018-03-21] MEDS: metFORMIN HCL 500 MG TABLET (FP) PO SCH (20:00)
[2018-03-21] MEDS: BACITRACIN 0.9 GM PACKET TP SCH (21:36)
[2018-03-21] MEDS: MELATONIN 5 MG TABLETS PO PRN (21:36)
[2018-03-21] MEDS: MINERAL OIL/PETROLAT/WATER TOPICAL CREAM 113 GM JAR TP SCH (21:38)
[2018-03-21] MEDS: THIAMINE HCL 100 MG TABLET (FP) PO SCH (21:38)
[2018-03-22] MEDS: metFORMIN HCL 500 MG TABLET (FP) PO SCH ×2 (06:51→16:44)
[2018-03-22] MEDS: PRENATAL VITAMINS W/ FOLIC ACID TABLET (FP) PO SCH (09:58)
[2018-03-22] MEDS: BACITRACIN 0.9 GM PACKET TP SCH ×2 (09:58→21:53)
[2018-03-22] MEDS: NICOTINE 21 MG/24 HOURS TOPICAL PATCH TD SCH (09:59)
[2018-03-22] MEDS: MINERAL OIL/PETROLAT/WATER TOPICAL CREAM 113 GM JAR TP SCH ×2 (10:00→21:55)
[2018-03-22] MEDS ORDERED: hydrOXYzine PAMOATE 50 MG CAPSULE (FP) PO PRN ×2 (10:37→10:38)
--- NOTE | 2018-03-22 19:56 | PN ---
[facility] Progress Note Note: Psychiatry Attending's on-call note : Transferred from [address] [place] [address]. Called to reconcile medications. Chart reviewed. Psychiatric consult note of 03/19/18 : appreciated. Seroquel 50 mg po hs. Resumed as per treatment plan.
[2018-03-22] MEDS: QUEtiapine FUMARATE 50 MG TABLET PO SCH (21:54)
[2018-03-22] MEDS: MELATONIN 5 MG TABLETS PO PRN (21:54)
[2018-03-22] MEDS: THIAMINE HCL 100 MG TABLET (FP) PO SCH (21:55)
[2018-03-23] MEDS: metFORMIN HCL 500 MG TABLET (FP) PO SCH ×2 (06:30→16:43)
[2018-03-23] MEDS ORDERED: SERTRALINE HCL 25 MG TABLET (FP) PO SCH (10:00)
[2018-03-23] MEDS: BACITRACIN 0.9 GM PACKET TP SCH ×2 (10:18→21:54)
[2018-03-23] MEDS: NICOTINE 21 MG/24 HOURS TOPICAL PATCH TD SCH (10:19)
[2018-03-23] MEDS: PRENATAL VITAMINS W/ FOLIC ACID TABLET (FP) PO SCH (10:20)
[2018-03-23] MEDS: MINERAL OIL/PETROLAT/WATER TOPICAL CREAM 113 GM JAR TP SCH ×2 (10:20→21:54)
[2018-03-23] MEDS: QUEtiapine FUMARATE 50 MG TABLET PO SCH (21:53)
[2018-03-23] MEDS: THIAMINE HCL 100 MG TABLET (FP) PO SCH (21:54)
[2018-03-24] MEDS: metFORMIN HCL 500 MG TABLET (FP) PO SCH ×2 (06:33→16:55)
[2018-03-24] MEDS: PRENATAL VITAMINS W/ FOLIC ACID TABLET (FP) PO SCH (09:52)
[2018-03-24] MEDS: NICOTINE 21 MG/24 HOURS TOPICAL PATCH TD SCH (09:52)
[2018-03-24] MEDS: BACITRACIN 0.9 GM PACKET TP SCH ×2 (09:52→21:56)
[2018-03-24] MEDS: MINERAL OIL/PETROLAT/WATER TOPICAL CREAM 113 GM JAR TP SCH ×2 (09:52→21:56)
[2018-03-24] MEDS: IBUPROFEN 400 MG TABLET (FP) PO PRN (16:55)
[2018-03-24] MEDS: QUEtiapine FUMARATE 50 MG TABLET PO SCH (21:56)
[2018-03-24] MEDS: THIAMINE HCL 100 MG TABLET (FP) PO SCH (21:56)
[2018-03-24] MEDS ORDERED: PT OWN MED DRAWER 7, Y5N ONE (22:02)
[2018-03-25] MEDS: metFORMIN HCL 500 MG TABLET (FP) PO SCH ×2 (07:14→16:49)
[2018-03-25] MEDS ORDERED: PT OWN MED DRAWER 7, Y5N ONE (09:12)
--- NOTE | 2018-03-25 10:31 | HP ---
Psychiatrist Admission - Data Date of interview: 03/25/18 Admission source: 6N Identifying data: This is the first [facility] admission for this 42 years old single male, unemployed, homeless Medical History: Significant for hypertension, diabetes, hepatitis C and history of surgey left foot. Smokes 10 cigarettes daily Psychiatric History: Patient reports being diagnosed with Schizophrenia/ depression at age 20. Reports 2 previous psychatric hospitalizations at [facility] and most recently at [facility]. As per SAKINA Veliz who saw him in detox on 03/19/18, he is also known to [facility] in [place], [place]. Denies receiving current OPD care. Claims his last OPD care was a year ago at [facility]. Claims that he was on Zoloft 100 mg po daily and Seroquel 100 mg po HS. According to pharmacy claims, scripts for Risperdal 1 mg po BID & Zoloft 50 mg po daily were filled on 04/18/17. when he saw SAKINA Veliz in detox, he was started on Seroquel [address] Witt was called on 03/22/18 to order medication for him on admission on this unit. Requests that Seroquel dosage be increased to 100 mg. Denies previous suicidal attempt. Denies experiencing psychotic, manic or depressive symptoms, S/H ideations Physical/Sexual Abuse/Trauma History: Denies history of emotional, physical or sexual abuse as well as DV relationship. No service Additional Comment: Reports one previous misdemeanor arrests for robbery Vital Signs: Vital Signs - 24 hr 03/25/18 03/25/18 03:30 06:48 Temperature 97.3 F L Pulse Rate 88 Respiratory 18 18 Rate Blood Pressure 114/71 Allergies/Adverse Reactions: Allergies Allergy/AdvReac Type Severity Reaction Status Date / Time divalproex sodium Allergy Verified 03/21/18 15:02 [From Depakote] fish derived Allergy Verified 03/21/18 15:02 Date of last physical exam: 03/16/18 Concur with the findings of this exam: Yes - Substance Abuse/Tx History Hx Substance Use: Yes Substance Use Type: Cocaine (Started smoking crack cocaine at age 20, consumes 5 bags daily. Last used on 03/09/18), Heroin (Started using heroin at age 15, consumes 10 bags daily. Last used on 03/09/18), Opiates (Started using non Rx methadone at age 20, consumes 40 mg 3-6 times weekly. Last used on 03/15/18) Mental Status Exam - Mental Status Exam Alert and Oriented to: Time, Place, Person Cognitive Function: Fair Mood: Depressed, Hopeful, Euthymic Patient Behavior: Cooperative Speech Pattern: Clear Voice Loudness: Normal Thought Process: Intact, Goal Oriented Thought Disorder: Not Present Hallucinations: Denies Suicidal Ideation: Denies Homicidal Ideation: Denies Insight/Judgement: Fair Sleep: Poorly Appetite: Good Muscle strength/Tone: Normal Gait/Station: Normal Psychiatric Findings - Problem List ([place] 1, 2,3) (1) Opioid dependence Current Visit: Yes Status: Acute (2) Cocaine dependence Current Visit: Yes Status: Acute (3) Nicotine dependence Current Visit: Yes Status: Chronic (4) Schizoaffective disorder Current Visit: Yes Status: Chronic (5) Substance-induced sleep disorder Current Visit: Yes Status: Acute (6) Hepatitis C Current Visit: No Status: Chronic Qualifiers: Viral hepatitis chronicity: chronic Hepatic coma status: without hepatic coma Qualified Code(s): B18.2 - Chronic viral hepatitis C - Initial Treatment Plan Initial Treatment Plan: 1) Start Seroquel 100 mg po HS. 2) Monitor progress
[2018-03-25] MEDS: MINERAL OIL/PETROLAT/WATER TOPICAL CREAM 113 GM JAR TP SCH ×2 (10:45→21:40)
[2018-03-25] MEDS: PRENATAL VITAMINS W/ FOLIC ACID TABLET (FP) PO SCH (10:45)
[2018-03-25] MEDS: BACITRACIN 0.9 GM PACKET TP SCH ×2 (10:45→21:39)
[2018-03-25] MEDS: NICOTINE 21 MG/24 HOURS TOPICAL PATCH TD SCH (10:45)
[2018-03-25] MEDS: IBUPROFEN 400 MG TABLET (FP) PO PRN (16:51)
[2018-03-25] MEDS: QUEtiapine FUMARATE 100 MG TABLET (FP) PO SCH (21:40)
[2018-03-25] MEDS: THIAMINE HCL 100 MG TABLET (FP) PO SCH (21:40)
[2018-03-26] MEDS: metFORMIN HCL 500 MG TABLET (FP) PO SCH ×2 (07:08→16:26)
--- NOTE | 2018-03-26 09:58 | PN ---
[facility] COWS - Scale Resting Pulse: 1= OR 81-100 Sweatin= Chills/Flushing Restless Observation: 1= Difficult to Sit Still Pupil Size: 2= Moderately Dilated Bone or Joint Aches: 2= Severe Diffuse Aches Runny Nose/ Eye Tearin= None GI Upset > 30mins: 1= Stomach Cramp Tremor Observation of Outstretched Hands: 0= None Yawning Observation: 0= None Anxiety or Irritability: 2=Irritable/Anxious Goose Flesh Skin: 3=Piloerection COWS Score: 13 BHS Progress Note (SOAP) Subjective: PATIENT SEEN FOR SUBOXONE MAINTENANCE TREATMENT. PATIENT HAS H/O IV HEROIN USE. STATES HE USES 15 BAGS DAILY. PATIENT COMPLETED DETOX HERE AT [facility] AND CAME TO REHAB ON 03/21/18. PATIENT C/O CHILLS, BODY ACHES, NIGHT SWEATS, ANXIETY AND RESTLESSNESS. Objective: 03/26/18 09:54 Vital Signs Temperature 97.9 F 03/26/18 06:36 Pulse Rate 101 H 03/26/18 06:36 Respiratory Rate 20 03/26/18 06:36 Blood Pressure 114/76 03/26/18 06:36 O2 Sat by Pulse Oximetry (%) Laboratory Tests 03/21/18 03/22/18 03/22/18 16:58 06:50 16:44 POC Glucometer 91 86 138 03/23/18 03/23/18 03/24/18 06:29 16:42 06:32 POC Glucometer 91 149 148 03/24/18 03/25/18 03/25/18 16:53 06:04 16:48 POC Glucometer 245 134 245 03/26/18 05:53 POC Glucometer 116 PE: ALERT AND ORIENTED X 3 SKIN + GOOSEFLESH, +FACIAL MOISTURE EYES +PERRLA, PUPILS MODERATELY DILATED EXT FULL ROM, AMB AD JOSE +ANXIETY, RESTLESSNESS Assessment: 03/26/18 09:56 WITHDRAWAL SX SUBOXONE MAINTENANCE THERAPY Plan: WILL START SUBOXONE 2MG BID STARTING THIS MORNING PATIENT CONNECTED TO OUTPATIENT PROGRAM AT [facility] AND HAS APPT FOR 04/18/18. ENCOURAGE ORAL FLUIDS CONTINUE TO MONITOR CLINICALLY
[2018-03-26] MEDS: PRENATAL VITAMINS W/ FOLIC ACID TABLET (FP) PO SCH (10:09)
[2018-03-26] MEDS: BACITRACIN 0.9 GM PACKET TP SCH ×2 (10:09→22:16)
[2018-03-26] MEDS: NICOTINE 21 MG/24 HOURS TOPICAL PATCH TD SCH (10:09)
[2018-03-26] MEDS: BUPRENORPHINE/NALOXONE 2 MG/0.5 MG FILM PACKET SL SCH ×2 (10:11→21:29)
[2018-03-26] MEDS: MINERAL OIL/PETROLAT/WATER TOPICAL CREAM 113 GM JAR TP SCH ×2 (10:12→22:17)
[2018-03-26] MEDS: QUEtiapine FUMARATE 100 MG TABLET (FP) PO SCH (21:29)
[2018-03-26] MEDS: MELATONIN 5 MG TABLETS PO PRN (21:29)
[2018-03-26] MEDS: THIAMINE HCL 100 MG TABLET (FP) PO SCH (21:29)
[2018-03-27] MEDS: metFORMIN HCL 500 MG TABLET (FP) PO SCH ×2 (07:30→16:40)
[2018-03-27] MEDS ORDERED: PT OWN MED DRAWER 7, Y5N ONE (09:02)
[2018-03-27] MEDS: BACITRACIN 0.9 GM PACKET TP SCH ×2 (10:42→21:36)
[2018-03-27] MEDS: MINERAL OIL/PETROLAT/WATER TOPICAL CREAM 113 GM JAR TP SCH ×2 (10:42→21:37)
[2018-03-27] MEDS: NICOTINE 21 MG/24 HOURS TOPICAL PATCH TD SCH (10:43)
[2018-03-27] MEDS: PRENATAL VITAMINS W/ FOLIC ACID TABLET (FP) PO SCH (10:43)
[2018-03-27] MEDS: BUPRENORPHINE/NALOXONE 2 MG/0.5 MG FILM PACKET SL SCH ×2 (10:43→21:36)
[2018-03-27] MEDS ORDERED: INSULIN (NOVOLOG) ASPART 100 UNITS/ML 10ML VIAL ONE (16:43)
[2018-03-27] MEDS: INSULIN SLIDING SCALE (NOVOLOG) 1 VIAL SQ SCH (17:44)
[2018-03-27] MEDS: QUEtiapine FUMARATE 100 MG TABLET (FP) PO SCH (21:36)
[2018-03-27] MEDS: THIAMINE HCL 100 MG TABLET (FP) PO SCH (21:36)
[2018-03-28] MEDS: metFORMIN HCL 500 MG TABLET (FP) PO SCH ×2 (06:25→16:55)
[2018-03-28] MEDS: INSULIN SLIDING SCALE (NOVOLOG) 1 VIAL SQ SCH ×2 (06:27→16:51)
[2018-03-28] MEDS ORDERED: INSULIN SLIDING SCALE (NOVOLOG) 1 VIAL SQ SCH (07:00)
[2018-03-28] MEDS: BACITRACIN 0.9 GM PACKET TP SCH ×2 (10:21→21:34)
[2018-03-28] MEDS: BUPRENORPHINE/NALOXONE 2 MG/0.5 MG FILM PACKET SL SCH (10:21)
[2018-03-28] MEDS: IBUPROFEN 400 MG TABLET (FP) PO PRN (10:21)
[2018-03-28] MEDS: PRENATAL VITAMINS W/ FOLIC ACID TABLET (FP) PO SCH (10:21)
[2018-03-28] MEDS: NICOTINE 21 MG/24 HOURS TOPICAL PATCH TD SCH (10:21)
[2018-03-28] MEDS: MINERAL OIL/PETROLAT/WATER TOPICAL CREAM 113 GM JAR TP SCH ×2 (10:23→21:34)
[2018-03-28] MEDS ORDERED: BUPRENORPHINE/NALOXONE 2 MG/0.5 MG FILM PACKET SL SCH ×2 (11:35→22:00)
--- NOTE | 2018-03-28 12:02 | PN ---
BHS COWS - Scale Resting Pulse: 2= [place] 101-120 Sweatin= Chills/Flushing Restless Observation: 1= Difficult to Sit Still Pupil Size: 0= Normal to Room Light Bone or Joint Aches: 2= Severe Diffuse Aches Runny Nose/ Eye Tearin= None GI Upset > 30mins: 0= None Tremor Observation of Outstretched Hands: 0= None Yawning Observation: 0= None Anxiety or Irritability: 2=Irritable/Anxious Goose Flesh Skin: 3=Piloerection COWS Score: 11 BHS Progress Note (SOAP) Subjective: PATIENT CONTINUES ON SUBOXONE 2MG BID. STATES MEDICATION HELPFUL BUT STILL C/O OPIOD CRAVINGS, ANXIETY, RESTLESSNESS AND BODY ACHES. Objective: 03/28/18 11:58 Laboratory Tests 03/21/18 03/22/18 03/22/18 16:58 06:50 16:44 POC Glucometer 91 86 138 03/23/18 03/23/18 03/24/18 06:29 16:42 06:32 POC Glucometer 91 149 148 03/24/18 03/25/18 03/25/18 16:53 06:04 16:48 POC Glucometer 245 134 245 03/26/18 03/26/18 03/27/18 05:53 16:21 05:59 POC Glucometer 116 269 256 03/27/18 03/28/18 16:40 06:25 POC Glucometer 300 156 Vital Signs Temperature 97.5 F L 03/28/18 06:59 Pulse Rate 101 H 03/28/18 06:59 Respiratory Rate 20 03/28/18 06:59 Blood Pressure 131/74 03/28/18 06:59 O2 Sat by Pulse Oximetry (%) PE: ALERT AND ORIENTED X 3 SKIN WARM AND MOIST, +GOOSEFLESH LEFT FOOT WOUND TISSUE, PINK AND MOIST. NO DISCHARGE, ODOR OR REDNESS NOTED. BLE WITHOUT SWELLING AMB AD JOSE +RESTLESSNESS Assessment: 03/28/18 12:01 WITHDRAWAL SX LEFT FOOT OPEN WOUND: HEALING Plan: INCREASE SUBOXONE STARTING TOMORROW TO 8MG DAILY CONTINUE LOCAL WOUND CARE TO LEFT FOOT CONTINUE TO MONITOR
[2018-03-28] MEDS ORDERED: INSULIN (NOVOLOG) ASPART 100 UNITS/ML 10ML VIAL ONE (16:51)
[2018-03-28] MEDS: THIAMINE HCL 100 MG TABLET (FP) PO SCH (21:33)
[2018-03-28] MEDS: QUEtiapine FUMARATE 100 MG TABLET (FP) PO SCH (21:34)
[2018-03-29] MEDS: metFORMIN HCL 500 MG TABLET (FP) PO SCH ×2 (07:04→16:58)
[2018-03-29] MEDS: INSULIN SLIDING SCALE (NOVOLOG) 1 VIAL SQ SCH ×2 (07:05→16:59)
[2018-03-29] MEDS ORDERED: INSULIN (NOVOLOG) ASPART 100 UNITS/ML 10ML VIAL ONE ×2 (07:05→16:57)
[2018-03-29] MEDS: BUPRENORPHINE/NALOXONE 8 MG/2 MG FILM PACKET SL SCH (10:17)
[2018-03-29] MEDS: NICOTINE 21 MG/24 HOURS TOPICAL PATCH TD SCH (10:17)
[2018-03-29] MEDS: PRENATAL VITAMINS W/ FOLIC ACID TABLET (FP) PO SCH (10:17)
[2018-03-29] MEDS: BACITRACIN 0.9 GM PACKET TP SCH ×2 (10:18→21:41)
[2018-03-29] MEDS: MINERAL OIL/PETROLAT/WATER TOPICAL CREAM 113 GM JAR TP SCH ×2 (10:18→21:41)
[2018-03-29] MEDS: MELATONIN 5 MG TABLETS PO PRN (21:41)
[2018-03-29] MEDS: THIAMINE HCL 100 MG TABLET (FP) PO SCH (21:41)
[2018-03-29] MEDS: QUEtiapine FUMARATE 100 MG TABLET (FP) PO SCH (21:41)
[2018-03-30] MEDS: metFORMIN HCL 500 MG TABLET (FP) PO SCH ×2 (06:33→16:50)
[2018-03-30] MEDS ORDERED: INSULIN (NOVOLOG) ASPART 100 UNITS/ML 10ML VIAL ONE (07:37)
[2018-03-30] MEDS: INSULIN SLIDING SCALE (NOVOLOG) 1 VIAL SQ SCH ×2 (07:38→16:51)
[2018-03-30] MEDS: BACITRACIN 0.9 GM PACKET TP SCH ×2 (09:54→21:31)
[2018-03-30] MEDS: PRENATAL VITAMINS W/ FOLIC ACID TABLET (FP) PO SCH (09:55)
[2018-03-30] MEDS: MINERAL OIL/PETROLAT/WATER TOPICAL CREAM 113 GM JAR TP SCH ×2 (09:55→21:32)
[2018-03-30] MEDS: BUPRENORPHINE/NALOXONE 8 MG/2 MG FILM PACKET SL SCH (09:55)
[2018-03-30] MEDS: NICOTINE 21 MG/24 HOURS TOPICAL PATCH TD SCH (09:55)
[2018-03-30] MEDS: THIAMINE HCL 100 MG TABLET (FP) PO SCH (21:31)
[2018-03-30] MEDS: QUEtiapine FUMARATE 100 MG TABLET (FP) PO SCH (21:31)
[2018-03-30] MEDS: MELATONIN 5 MG TABLETS PO PRN (21:31)
[2018-03-31] MEDS ORDERED: INSULIN (NOVOLOG) ASPART 100 UNITS/ML 10ML VIAL ONE (07:08)
[2018-03-31] MEDS: metFORMIN HCL 500 MG TABLET (FP) PO SCH ×2 (07:09→16:43)
[2018-03-31] MEDS: INSULIN SLIDING SCALE (NOVOLOG) 1 VIAL SQ SCH ×2 (07:09→16:44)
[2018-03-31] MEDS: MINERAL OIL/PETROLAT/WATER TOPICAL CREAM 113 GM JAR TP SCH ×2 (09:41→21:44)
[2018-03-31] MEDS: PRENATAL VITAMINS W/ FOLIC ACID TABLET (FP) PO SCH (09:41)
[2018-03-31] MEDS: BUPRENORPHINE/NALOXONE 8 MG/2 MG FILM PACKET SL SCH (09:41)
[2018-03-31] MEDS: NICOTINE 21 MG/24 HOURS TOPICAL PATCH TD SCH (09:41)
[2018-03-31] MEDS: BACITRACIN 0.9 GM PACKET TP SCH ×2 (09:41→21:21)
[2018-03-31] MEDS: QUEtiapine FUMARATE 100 MG TABLET (FP) PO SCH (21:22)
[2018-03-31] MEDS: THIAMINE HCL 100 MG TABLET (FP) PO SCH (21:22)
[2018-03-31] MEDS: MELATONIN 5 MG TABLETS PO PRN (21:22)
[2018-04-01] MEDS: metFORMIN HCL 500 MG TABLET (FP) PO SCH ×2 (06:12→16:55)
[2018-04-01] MEDS: INSULIN SLIDING SCALE (NOVOLOG) 1 VIAL SQ SCH ×2 (06:13→16:55)
[2018-04-01] MEDS: PRENATAL VITAMINS W/ FOLIC ACID TABLET (FP) PO SCH (09:44)
[2018-04-01] MEDS: BUPRENORPHINE/NALOXONE 8 MG/2 MG FILM PACKET SL SCH ×3 (09:44→22:20)
[2018-04-01] MEDS: NICOTINE 21 MG/24 HOURS TOPICAL PATCH TD SCH (09:44)
[2018-04-01] MEDS: BACITRACIN 0.9 GM PACKET TP SCH ×2 (09:46→21:32)
[2018-04-01] MEDS: MINERAL OIL/PETROLAT/WATER TOPICAL CREAM 113 GM JAR TP SCH ×2 (09:46→21:32)
--- NOTE | 2018-04-01 10:12 | PN ---
BHS COWS - Scale Resting Pulse: 2= [place] 101-120 Sweatin= Chills/Flushing Restless Observation: 0= Sits Still Pupil Size: 0= Normal to Room Light Bone or Joint Aches: 2= Severe Diffuse Aches Runny Nose/ Eye Tearin= None GI Upset > 30mins: 1= Stomach Cramp Tremor Observation of Outstretched Hands: 0= None Yawning Observation: 0= None Anxiety or Irritability: 2=Irritable/Anxious Goose Flesh Skin: 0=Smooth Skin COWS Score: 8 BHS Progress Note (SOAP) Subjective: PATIENT C/O CHILLS, RESTLESSNESS, OPIOD CRAVINGS AND NIGHT SWEATS (AT NIGHT). Objective: 04/01/18 10:09 Vital Signs Temperature 97.2 F L 04/01/18 07:04 Pulse Rate 101 H 04/01/18 07:04 Respiratory Rate 04/01/18 07:04 Blood Pressure 120/70 04/01/18 07:04 O2 Sat by Pulse Oximetry (%) Laboratory Tests 03/21/18 03/22/18 03/22/18 16:58 06:50 16:44 POC Glucometer 91 86 138 03/23/18 03/23/18 03/24/18 06:29 16:42 06:32 POC Glucometer 91 149 148 03/24/18 03/25/18 03/25/18 16:53 06:04 16:48 POC Glucometer 245 134 245 03/26/18 03/26/18 03/27/18 05:53 16:21 05:59 POC Glucometer 116 269 256 03/27/18 03/28/18 03/28/18 16:40 06:25 16:50 POC Glucometer 300 156 317 03/29/18 03/29/18 03/30/18 06:34 16:56 06:03 POC Glucometer 263 340 272 03/30/18 03/31/18 03/31/18 16:49 05:50 16:42 POC Glucometer 359 265 322 04/01/18 06:11 POC Glucometer 327 PE: ALERT AND ORIENTED X 3 SKIN WARM, MILD FACIAL MOISTURE +PERRLA, EOMS INTACT BL EXT + ROM, AMB AD JOSE, NO VISIBLE TREMORS +ANXIETY Assessment: 04/01/18 10:11 WITHDRAWAL SX Plan: SYMPTOMS OCCURRING MAINLY AT NIGHT PATIENT CURRENTLY DOSED DAILY WILL INCREASE TO SUBOXONE 8MG/2MG BID ENCOURAGE ORAL FLUIDS CONTINUE TO MONITOR CLINICALLY
[2018-04-01] MEDS ORDERED: INSULIN (NOVOLOG) ASPART 100 UNITS/ML 10ML VIAL ONE (17:05)
[2018-04-01] MEDS: QUEtiapine FUMARATE 100 MG TABLET (FP) PO SCH (21:28)
[2018-04-01] MEDS: THIAMINE HCL 100 MG TABLET (FP) PO SCH (21:29)
[2018-04-01] MEDS: MELATONIN 5 MG TABLETS PO PRN (21:30)
[2018-04-02] MEDS: metFORMIN HCL 500 MG TABLET (FP) PO SCH ×2 (06:23→16:40)
[2018-04-02] MEDS: INSULIN SLIDING SCALE (NOVOLOG) 1 VIAL SQ SCH ×3 (06:24→21:44)
[2018-04-02] MEDS ORDERED: INSULIN (NOVOLOG) ASPART 100 UNITS/ML 10ML VIAL ONE ×3 (06:33→21:44)
[2018-04-02] MEDS: BACITRACIN 0.9 GM PACKET TP SCH ×2 (10:00→21:10)
[2018-04-02] MEDS: MINERAL OIL/PETROLAT/WATER TOPICAL CREAM 113 GM JAR TP SCH ×2 (10:00→21:10)
[2018-04-02] MEDS: BUPRENORPHINE/NALOXONE 8 MG/2 MG FILM PACKET SL SCH ×2 (10:00→21:08)
[2018-04-02] MEDS: PRENATAL VITAMINS W/ FOLIC ACID TABLET (FP) PO SCH (10:00)
[2018-04-02] MEDS: NICOTINE 21 MG/24 HOURS TOPICAL PATCH TD SCH (10:00)
[2018-04-02] MEDS ORDERED: PT OWN MED DRAWER 7, Y5N ONE (20:15)
--- NOTE | 2018-04-02 20:37 | PN ---
S Progress Note Note: Vital Signs Temperature 97.5 F L 04/02/18 07:25 Pulse Rate 88 04/02/18 07:25 Respiratory Rate 17 04/02/18 07:25 Blood Pressure 127/77 04/02/18 07:25 O2 Sat by Pulse Oximetry (%) Laboratory Last Values POC Glucometer 422 UNITS (80-120) 04/02/18 16:34 Patient with elevated BGM on BGM monitoring ACHS and coverage novolog BID, insulin coverage changed to TID, increase PO fluids. Continue to monitor
[2018-04-02] MEDS: THIAMINE HCL 100 MG TABLET (FP) PO SCH (21:09)
[2018-04-02] MEDS: QUEtiapine FUMARATE 100 MG TABLET (FP) PO SCH (21:09)
[2018-04-03] MEDS: INSULIN SLIDING SCALE (NOVOLOG) 1 VIAL SQ SCH ×3 (06:22→16:58)
[2018-04-03] MEDS: metFORMIN HCL 500 MG TABLET (FP) PO SCH ×2 (06:22→16:59)
[2018-04-03] MEDS ORDERED: INSULIN (NOVOLOG) ASPART 100 UNITS/ML 10ML VIAL ONE ×4 (06:22→21:58)
[2018-04-03] MEDS: BACITRACIN 0.9 GM PACKET TP SCH ×2 (09:42→21:11)
[2018-04-03] MEDS: NICOTINE 21 MG/24 HOURS TOPICAL PATCH TD SCH (09:42)
[2018-04-03] MEDS: BUPRENORPHINE/NALOXONE 8 MG/2 MG FILM PACKET SL SCH ×2 (09:42→21:11)
[2018-04-03] MEDS: PRENATAL VITAMINS W/ FOLIC ACID TABLET (FP) PO SCH (09:42)
[2018-04-03] MEDS: MINERAL OIL/PETROLAT/WATER TOPICAL CREAM 113 GM JAR TP SCH ×2 (09:43→22:01)
[2018-04-03] MEDS ORDERED: PT OWN MED DRAWER 7, Y5N ONE (21:10)
[2018-04-03] MEDS: QUEtiapine FUMARATE 100 MG TABLET (FP) PO SCH (21:11)
[2018-04-03] MEDS: THIAMINE HCL 100 MG TABLET (FP) PO SCH (21:11)
[2018-04-04] MEDS ORDERED: INSULIN (NOVOLOG) ASPART 100 UNITS/ML 10ML VIAL ONE ×3 (07:03→16:28)
[2018-04-04] MEDS: metFORMIN HCL 500 MG TABLET (FP) PO SCH ×2 (07:03→16:43)
[2018-04-04] MEDS: INSULIN SLIDING SCALE (NOVOLOG) 1 VIAL SQ SCH ×3 (07:03→16:44)
[2018-04-04] MEDS: BACITRACIN 0.9 GM PACKET TP SCH ×2 (09:47→21:05)
[2018-04-04] MEDS: MINERAL OIL/PETROLAT/WATER TOPICAL CREAM 113 GM JAR TP SCH ×2 (09:47→21:06)
[2018-04-04] MEDS: PRENATAL VITAMINS W/ FOLIC ACID TABLET (FP) PO SCH (09:47)
[2018-04-04] MEDS: NICOTINE 21 MG/24 HOURS TOPICAL PATCH TD SCH (09:47)
[2018-04-04] MEDS: BUPRENORPHINE/NALOXONE 8 MG/2 MG FILM PACKET SL SCH ×2 (10:18→21:07)
[2018-04-04] MEDS ORDERED: PT OWN MED DRAWER 7, Y5N ONE ×2 (20:02→22:03)
[2018-04-04] MEDS: THIAMINE HCL 100 MG TABLET (FP) PO SCH (21:05)
[2018-04-04] MEDS: QUEtiapine FUMARATE 100 MG TABLET (FP) PO SCH (21:05)
[2018-04-05] MEDS ORDERED: INSULIN (NOVOLOG) ASPART 100 UNITS/ML 10ML VIAL ONE ×2 (06:21→11:58)
[2018-04-05] MEDS: metFORMIN HCL 500 MG TABLET (FP) PO SCH ×2 (06:22→16:40)
[2018-04-05] MEDS: INSULIN SLIDING SCALE (NOVOLOG) 1 VIAL SQ SCH ×3 (06:22→16:38)
[2018-04-05] MEDS: BUPRENORPHINE/NALOXONE 8 MG/2 MG FILM PACKET SL SCH ×2 (10:00→21:22)
[2018-04-05] MEDS: PRENATAL VITAMINS W/ FOLIC ACID TABLET (FP) PO SCH (10:00)
[2018-04-05] MEDS: NICOTINE 21 MG/24 HOURS TOPICAL PATCH TD SCH (10:00)
[2018-04-05] MEDS: MINERAL OIL/PETROLAT/WATER TOPICAL CREAM 113 GM JAR TP SCH ×2 (10:01→21:22)
[2018-04-05] MEDS: BACITRACIN 0.9 GM PACKET TP SCH ×2 (10:01→21:22)
[2018-04-05] MEDS ORDERED: PT OWN MED DRAWER 7, Y5N ONE (19:27)
[2018-04-05] MEDS: THIAMINE HCL 100 MG TABLET (FP) PO SCH (21:21)
[2018-04-05] MEDS: MELATONIN 5 MG TABLETS PO PRN (21:21)
[2018-04-05] MEDS: QUEtiapine FUMARATE 100 MG TABLET (FP) PO SCH (21:21)
[2018-04-06] MEDS: metFORMIN HCL 500 MG TABLET (FP) PO SCH ×2 (06:18→16:56)
[2018-04-06] MEDS: INSULIN SLIDING SCALE (NOVOLOG) 1 VIAL SQ SCH ×3 (06:19→17:01)
[2018-04-06] MEDS ORDERED: PT OWN MED DRAWER 7, Y5N ONE ×3 (08:31→22:29)
[2018-04-06] MEDS: NICOTINE 21 MG/24 HOURS TOPICAL PATCH TD SCH (09:56)
[2018-04-06] MEDS: PRENATAL VITAMINS W/ FOLIC ACID TABLET (FP) PO SCH (09:56)
[2018-04-06] MEDS: BUPRENORPHINE/NALOXONE 8 MG/2 MG FILM PACKET SL SCH ×2 (09:56→22:10)
[2018-04-06] MEDS: BACITRACIN 0.9 GM PACKET TP SCH ×2 (09:56→22:09)
[2018-04-06] MEDS: MINERAL OIL/PETROLAT/WATER TOPICAL CREAM 113 GM JAR TP SCH ×2 (09:56→22:10)
[2018-04-06] MEDS ORDERED: INSULIN (NOVOLOG) ASPART 100 UNITS/ML 10ML VIAL ONE ×2 (11:38→16:55)
[2018-04-06] MEDS: THIAMINE HCL 100 MG TABLET (FP) PO SCH (22:10)
[2018-04-06] MEDS: QUEtiapine FUMARATE 100 MG TABLET (FP) PO SCH (22:10)
[2018-04-07] MEDS: metFORMIN HCL 500 MG TABLET (FP) PO SCH ×2 (06:14→16:37)
[2018-04-07] MEDS: INSULIN SLIDING SCALE (NOVOLOG) 1 VIAL SQ SCH ×3 (06:15→16:39)
[2018-04-07] MEDS: BACITRACIN 0.9 GM PACKET TP SCH ×2 (09:45→21:07)
[2018-04-07] MEDS: NICOTINE 21 MG/24 HOURS TOPICAL PATCH TD SCH (09:45)
[2018-04-07] MEDS: BUPRENORPHINE/NALOXONE 8 MG/2 MG FILM PACKET SL SCH ×2 (09:45→21:07)
[2018-04-07] MEDS: MINERAL OIL/PETROLAT/WATER TOPICAL CREAM 113 GM JAR TP SCH ×2 (09:45→21:49)
[2018-04-07] MEDS: PRENATAL VITAMINS W/ FOLIC ACID TABLET (FP) PO SCH (09:45)
[2018-04-07] MEDS ORDERED: INSULIN (NOVOLOG) ASPART 100 UNITS/ML 10ML VIAL ONE (11:49)
[2018-04-07] MEDS ORDERED: INSULIN (NOVOLOG MIX 70/30) 100 UNITS/ML MDV SQ ONE (16:36)
[2018-04-07] MEDS: QUEtiapine FUMARATE 100 MG TABLET (FP) PO SCH (21:06)
[2018-04-07] MEDS: THIAMINE HCL 100 MG TABLET (FP) PO SCH (21:06)
[2018-04-07] MEDS: MELATONIN 5 MG TABLETS PO PRN (21:08)
[2018-04-08] MEDS: INSULIN SLIDING SCALE (NOVOLOG) 1 VIAL SQ SCH ×3 (06:46→16:46)
[2018-04-08] MEDS ORDERED: INSULIN (NOVOLOG) ASPART 100 UNITS/ML 10ML VIAL ONE ×2 (06:46→12:06)
[2018-04-08] MEDS: metFORMIN HCL 500 MG TABLET (FP) PO SCH ×2 (06:46→16:44)
[2018-04-08] MEDS: NICOTINE 21 MG/24 HOURS TOPICAL PATCH TD SCH (09:48)
[2018-04-08] MEDS: PRENATAL VITAMINS W/ FOLIC ACID TABLET (FP) PO SCH (09:48)
[2018-04-08] MEDS: BUPRENORPHINE/NALOXONE 8 MG/2 MG FILM PACKET SL SCH ×2 (09:48→21:23)
[2018-04-08] MEDS: MINERAL OIL/PETROLAT/WATER TOPICAL CREAM 113 GM JAR TP SCH ×2 (09:48→21:22)
[2018-04-08] MEDS: BACITRACIN 0.9 GM PACKET TP SCH ×2 (09:48→21:22)
[2018-04-08] MEDS ORDERED: PT OWN MED DRAWER 7, Y5N ONE (19:20)
[2018-04-08] MEDS: QUEtiapine FUMARATE 100 MG TABLET (FP) PO SCH (21:22)
[2018-04-08] MEDS: MELATONIN 5 MG TABLETS PO PRN (21:22)
[2018-04-08] MEDS: THIAMINE HCL 100 MG TABLET (FP) PO SCH (21:22)
[2018-04-09] MEDS: metFORMIN HCL 500 MG TABLET (FP) PO SCH ×2 (06:32→16:50)
[2018-04-09] MEDS ORDERED: INSULIN (NOVOLOG) ASPART 100 UNITS/ML 10ML VIAL ONE (06:32)
[2018-04-09] MEDS: INSULIN SLIDING SCALE (NOVOLOG) 1 VIAL SQ SCH ×3 (06:33→16:52)
--- NOTE | 2018-04-09 09:41 | PN ---
[facility] Progress Note Note: REVIEW OF BLOOD SUGARS SHOW RANGE FROM 200-423. PATIENT CURRENTLY HAS REGIMEN OF METFORMIN 500MG BID AND SLIDING SCALE COVERAGE. ALSO TAKING SEROQUEL 100MG HS WHICH CONTRIBUTES TO BLOOD SUGAR ELEVATION. WILL ADD LANTUS 10 UNITS SQ HS TO REGIMEN, CONTINUE DIET MODIFICATIONS AND CONTINUE TO MONITOR CLINICALLY. Laboratory Tests 03/21/18 03/22/18 03/22/18 16:58 06:50 16:44 POC Glucometer 91 86 138 03/23/18 03/23/18 03/24/18 06:29 16:42 06:32 POC Glucometer 91 149 148 03/24/18 03/25/18 03/25/18 16:53 06:04 16:48 POC Glucometer 245 134 245 03/26/18 03/26/18 03/27/18 05:53 16:21 05:59 POC Glucometer 116 269 256 03/27/18 03/28/18 03/28/18 16:40 06:25 16:50 POC Glucometer 300 156 317 03/29/18 03/29/18 03/30/18 06:34 16:56 06:03 POC Glucometer 263 340 272 03/30/18 03/31/18 03/31/18 16:49 05:50 16:42 POC Glucometer 359 265 322 04/01/18 04/01/18 04/02/18 06:11 16:54 06:22 POC Glucometer 327 342 250 04/02/18 04/02/18 04/03/18 16:34 21:07 06:04 POC Glucometer 422 279 333 04/03/18 04/03/18 04/03/18 11:59 16:57 21:07 POC Glucometer 297 336 342 04/04/18 04/04/18 04/04/18 05:59 11:59 16:42 POC Glucometer 279 344 349 04/04/18 04/05/18 04/05/18 20:59 05:57 11:55 POC Glucometer 261 311 422 04/05/18 04/06/18 04/06/18 16:37 06:17 11:35 POC Glucometer 321 279 423 04/06/18 04/07/18 04/07/18 16:25 06:13 11:46 POC Glucometer 368 272 368 04/07/18 04/08/18 04/08/18 16:19 06:29 12:02 POC Glucometer 249 310 392 04/08/18 04/09/18 16:43 06:15 POC Glucometer 314 361
[2018-04-09] MEDS: NICOTINE 21 MG/24 HOURS TOPICAL PATCH TD SCH (10:20)
[2018-04-09] MEDS: BUPRENORPHINE/NALOXONE 8 MG/2 MG FILM PACKET SL SCH ×2 (10:20→21:34)
[2018-04-09] MEDS: PRENATAL VITAMINS W/ FOLIC ACID TABLET (FP) PO SCH (10:20)
[2018-04-09] MEDS: MINERAL OIL/PETROLAT/WATER TOPICAL CREAM 113 GM JAR TP SCH ×2 (10:21→21:59)
[2018-04-09] MEDS: BACITRACIN 0.9 GM PACKET TP SCH ×2 (10:24→21:59)
[2018-04-09] MEDS ORDERED: PT OWN MED DRAWER 7, Y5N ONE (19:26)
[2018-04-09] MEDS: QUEtiapine FUMARATE 100 MG TABLET (FP) PO SCH (21:33)
[2018-04-09] MEDS: MELATONIN 5 MG TABLETS PO PRN (21:33)
[2018-04-09] MEDS: THIAMINE HCL 100 MG TABLET (FP) PO SCH (21:33)
[2018-04-09] MEDS: INSULIN (LEVEMIR) 100 UNITS/ML UNITS SQ SCH (22:00)
[2018-04-10] MEDS: INSULIN SLIDING SCALE (NOVOLOG) 1 VIAL SQ SCH ×3 (07:09→16:31)
[2018-04-10] MEDS: metFORMIN HCL 500 MG TABLET (FP) PO SCH ×2 (07:09→16:32)
[2018-04-10] MEDS ORDERED: INSULIN (NOVOLOG) ASPART 100 UNITS/ML 10ML VIAL ONE (07:09)
[2018-04-10] MEDS: PRENATAL VITAMINS W/ FOLIC ACID TABLET (FP) PO SCH (09:41)
[2018-04-10] MEDS: BUPRENORPHINE/NALOXONE 8 MG/2 MG FILM PACKET SL SCH ×2 (09:41→21:17)
[2018-04-10] MEDS: NICOTINE 21 MG/24 HOURS TOPICAL PATCH TD SCH (09:41)
[2018-04-10] MEDS: BACITRACIN 0.9 GM PACKET TP SCH ×2 (09:42→21:18)
[2018-04-10] MEDS: MINERAL OIL/PETROLAT/WATER TOPICAL CREAM 113 GM JAR TP SCH ×2 (09:42→21:18)
[2018-04-10] MEDS: QUEtiapine FUMARATE 100 MG TABLET (FP) PO SCH (21:17)
[2018-04-10] MEDS: THIAMINE HCL 100 MG TABLET (FP) PO SCH (21:17)
[2018-04-10] MEDS: MELATONIN 5 MG TABLETS PO PRN (21:17)
[2018-04-10] MEDS: INSULIN (LEVEMIR) 100 UNITS/ML UNITS SQ SCH (21:22)
[2018-04-10] MEDS ORDERED: INSULIN (LEVEMIR) 100 UNITS/ML UNITS SQ ONE (22:12)
[2018-04-11] MEDS: metFORMIN HCL 500 MG TABLET (FP) PO SCH ×2 (05:59→16:55)
[2018-04-11] MEDS: INSULIN SLIDING SCALE (NOVOLOG) 1 VIAL SQ SCH ×3 (06:00→16:56)
[2018-04-11] MEDS: NICOTINE 21 MG/24 HOURS TOPICAL PATCH TD SCH (09:42)
[2018-04-11] MEDS: BUPRENORPHINE/NALOXONE 8 MG/2 MG FILM PACKET SL SCH ×2 (09:42→22:28)
[2018-04-11] MEDS: PRENATAL VITAMINS W/ FOLIC ACID TABLET (FP) PO SCH (09:42)
[2018-04-11] MEDS: MINERAL OIL/PETROLAT/WATER TOPICAL CREAM 113 GM JAR TP SCH ×2 (09:43→21:30)
[2018-04-11] MEDS: BACITRACIN 0.9 GM PACKET TP SCH ×2 (09:43→21:29)
[2018-04-11] MEDS: THIAMINE HCL 100 MG TABLET (FP) PO SCH (21:29)
[2018-04-11] MEDS: QUEtiapine FUMARATE 100 MG TABLET (FP) PO SCH (21:30)
[2018-04-11] MEDS: INSULIN (LEVEMIR) 100 UNITS/ML UNITS SQ SCH (21:30)
[2018-04-12] MEDS ORDERED: INSULIN (NOVOLOG) ASPART 100 UNITS/ML 10ML VIAL ONE ×2 (06:31→11:58)
[2018-04-12] MEDS: metFORMIN HCL 500 MG TABLET (FP) PO SCH ×2 (06:32→16:35)
[2018-04-12] MEDS: INSULIN SLIDING SCALE (NOVOLOG) 1 VIAL SQ SCH ×3 (06:32→16:35)
[2018-04-12] MEDS: BUPRENORPHINE/NALOXONE 8 MG/2 MG FILM PACKET SL SCH ×2 (09:44→21:06)
[2018-04-12] MEDS: BACITRACIN 0.9 GM PACKET TP SCH ×2 (09:44→22:22)
[2018-04-12] MEDS: PRENATAL VITAMINS W/ FOLIC ACID TABLET (FP) PO SCH (09:44)
[2018-04-12] MEDS: NICOTINE 21 MG/24 HOURS TOPICAL PATCH TD SCH (09:45)
[2018-04-12] MEDS: MINERAL OIL/PETROLAT/WATER TOPICAL CREAM 113 GM JAR TP SCH ×2 (09:45→22:22)
[2018-04-12] MEDS: INSULIN (LEVEMIR) 100 UNITS/ML UNITS SQ SCH (21:04)
[2018-04-12] MEDS: THIAMINE HCL 100 MG TABLET (FP) PO SCH (21:05)
[2018-04-12] MEDS: QUEtiapine FUMARATE 100 MG TABLET (FP) PO SCH (21:05)
[2018-04-12] MEDS: MELATONIN 5 MG TABLETS PO PRN (21:06)
[2018-04-13] MEDS ORDERED: INSULIN (NOVOLOG) ASPART 100 UNITS/ML 10ML VIAL ONE (06:51)
[2018-04-13] MEDS: metFORMIN HCL 500 MG TABLET (FP) PO SCH ×2 (06:52→16:38)
[2018-04-13] MEDS: INSULIN SLIDING SCALE (NOVOLOG) 1 VIAL SQ SCH ×3 (06:52→16:36)
[2018-04-13] MEDS: PRENATAL VITAMINS W/ FOLIC ACID TABLET (FP) PO SCH (09:36)
[2018-04-13] MEDS: IBUPROFEN 400 MG TABLET (FP) PO PRN (09:37)
[2018-04-13] MEDS: NICOTINE 21 MG/24 HOURS TOPICAL PATCH TD SCH (09:37)
[2018-04-13] MEDS: MINERAL OIL/PETROLAT/WATER TOPICAL CREAM 113 GM JAR TP SCH ×2 (09:37→21:59)
[2018-04-13] MEDS: BACITRACIN 0.9 GM PACKET TP SCH ×2 (09:37→21:59)
[2018-04-13] MEDS: BUPRENORPHINE/NALOXONE 8 MG/2 MG FILM PACKET SL SCH ×2 (09:37→21:08)
[2018-04-13] MEDS: INSULIN (LEVEMIR) 100 UNITS/ML UNITS SQ SCH (21:06)
[2018-04-13] MEDS: THIAMINE HCL 100 MG TABLET (FP) PO SCH (21:08)
[2018-04-13] MEDS: MELATONIN 5 MG TABLETS PO PRN (21:08)
[2018-04-13] MEDS: QUEtiapine FUMARATE 100 MG TABLET (FP) PO SCH (21:08)
[2018-04-14] MEDS ORDERED: INSULIN (NOVOLOG) ASPART 100 UNITS/ML 10ML VIAL ONE (06:56)
[2018-04-14] MEDS: INSULIN SLIDING SCALE (NOVOLOG) 1 VIAL SQ SCH ×3 (06:57→16:35)
[2018-04-14] MEDS: metFORMIN HCL 500 MG TABLET (FP) PO SCH ×2 (06:57→16:35)
[2018-04-14] MEDS: PRENATAL VITAMINS W/ FOLIC ACID TABLET (FP) PO SCH (09:28)
[2018-04-14] MEDS: NICOTINE 21 MG/24 HOURS TOPICAL PATCH TD SCH (09:29)
[2018-04-14] MEDS: BUPRENORPHINE/NALOXONE 8 MG/2 MG FILM PACKET SL SCH ×2 (09:29→21:06)
[2018-04-14] MEDS: BACITRACIN 0.9 GM PACKET TP SCH ×2 (09:30→22:10)
[2018-04-14] MEDS: MINERAL OIL/PETROLAT/WATER TOPICAL CREAM 113 GM JAR TP SCH ×2 (09:30→22:10)
[2018-04-14] MEDS: INSULIN (LEVEMIR) 100 UNITS/ML UNITS SQ SCH (21:05)
[2018-04-14] MEDS: QUEtiapine FUMARATE 100 MG TABLET (FP) PO SCH (21:06)
[2018-04-14] MEDS: MELATONIN 5 MG TABLETS PO PRN (21:06)
[2018-04-14] MEDS: THIAMINE HCL 100 MG TABLET (FP) PO SCH (21:06)
[2018-04-15] MEDS ORDERED: INSULIN (NOVOLOG) ASPART 100 UNITS/ML 10ML VIAL ONE ×3 (06:51→16:36)
[2018-04-15] MEDS: metFORMIN HCL 500 MG TABLET (FP) PO SCH ×2 (06:52→16:36)
[2018-04-15] MEDS: INSULIN SLIDING SCALE (NOVOLOG) 1 VIAL SQ SCH ×3 (06:52→16:37)
[2018-04-15] MEDS: BACITRACIN 0.9 GM PACKET TP SCH ×2 (10:29→21:35)
[2018-04-15] MEDS: BUPRENORPHINE/NALOXONE 8 MG/2 MG FILM PACKET SL SCH ×2 (10:29→21:35)
[2018-04-15] MEDS: MINERAL OIL/PETROLAT/WATER TOPICAL CREAM 113 GM JAR TP SCH ×2 (10:29→21:37)
[2018-04-15] MEDS: NICOTINE 21 MG/24 HOURS TOPICAL PATCH TD SCH (10:29)
[2018-04-15] MEDS: PRENATAL VITAMINS W/ FOLIC ACID TABLET (FP) PO SCH (10:29)
[2018-04-15] MEDS: INSULIN (LEVEMIR) 100 UNITS/ML UNITS SQ SCH (21:35)
[2018-04-15] MEDS: QUEtiapine FUMARATE 100 MG TABLET (FP) PO SCH (21:35)
[2018-04-15] MEDS: THIAMINE HCL 100 MG TABLET (FP) PO SCH (21:35)
[2018-04-15] MEDS: MELATONIN 5 MG TABLETS PO PRN (21:36)
[2018-04-16] MEDS: metFORMIN HCL 500 MG TABLET (FP) PO SCH ×2 (06:17→17:04)
[2018-04-16] MEDS: INSULIN SLIDING SCALE (NOVOLOG) 1 VIAL SQ SCH ×3 (06:18→17:02)
[2018-04-16] MEDS ORDERED: INSULIN (NOVOLOG) ASPART 100 UNITS/ML 10ML VIAL ONE ×2 (06:33→17:02)
[2018-04-16] MEDS: NICOTINE 21 MG/24 HOURS TOPICAL PATCH TD SCH (09:47)
[2018-04-16] MEDS: PRENATAL VITAMINS W/ FOLIC ACID TABLET (FP) PO SCH (09:47)
[2018-04-16] MEDS: BACITRACIN 0.9 GM PACKET TP SCH ×2 (09:48→22:15)
[2018-04-16] MEDS: BUPRENORPHINE/NALOXONE 8 MG/2 MG FILM PACKET SL SCH ×2 (09:48→22:20)
[2018-04-16] MEDS: MINERAL OIL/PETROLAT/WATER TOPICAL CREAM 113 GM JAR TP SCH ×2 (09:49→22:15)
[2018-04-16] MEDS: THIAMINE HCL 100 MG TABLET (FP) PO SCH (22:15)
[2018-04-16] MEDS: QUEtiapine FUMARATE 100 MG TABLET (FP) PO SCH (22:15)
[2018-04-16] MEDS: INSULIN (LEVEMIR) 100 UNITS/ML UNITS SQ SCH (22:17)
[2018-04-16] MEDS: MELATONIN 5 MG TABLETS PO PRN (22:21)
[2018-04-17] MEDS: metFORMIN HCL 500 MG TABLET (FP) PO SCH ×2 (06:03→16:51)
[2018-04-17] MEDS: INSULIN SLIDING SCALE (NOVOLOG) 1 VIAL SQ SCH ×3 (06:05→16:50)
[2018-04-17] MEDS ORDERED: INSULIN (NOVOLOG) ASPART 100 UNITS/ML 10ML VIAL ONE ×3 (06:25→16:50)
[2018-04-17] MEDS: BACITRACIN 0.9 GM PACKET TP SCH ×2 (10:25→21:49)
[2018-04-17] MEDS: PRENATAL VITAMINS W/ FOLIC ACID TABLET (FP) PO SCH (10:25)
[2018-04-17] MEDS: MINERAL OIL/PETROLAT/WATER TOPICAL CREAM 113 GM JAR TP SCH ×2 (10:26→21:50)
[2018-04-17] MEDS: NICOTINE 21 MG/24 HOURS TOPICAL PATCH TD SCH (10:26)
[2018-04-17] MEDS: BUPRENORPHINE/NALOXONE 8 MG/2 MG FILM PACKET SL SCH ×2 (10:26→21:49)
--- NOTE | 2018-04-17 14:35 | PN ---
[facility] Progress Note Note: PATIENT IS SCHEDULED FOR DISCHARGE TOMORROW MORNING TO [facility] DOES NOT HAVE BED AVAILABLE. PATIENT SCHEDULED FOR FOLLOW UP WITH [facility] IN [place], [place] FOR CONTINUED PRIMARY CARE AND MAT. HOWEVER, PATIENT CURRENTLY HAS OPEN WOUND TO FOOT, H/O DIABETES AND REPORTS CONCERN OF MAINTAINING SOBRIETY IN [facility]. PATIENT REPORTS DUE TO HOMELESSNESS , HE WAS NON COMPLIANT WITH INSULIN HE DID NOT HAVE PLACE TO STORE MEDICATION. BLOOD SUGARS BELOW SHOW PERSISTENT ELEVATED BLOOD SUGARS. Laboratory Tests 03/21/18 03/22/18 03/22/18 16:58 06:50 16:44 POC Glucometer 91 86 138 03/23/18 03/23/18 03/24/18 06:29 16:42 06:32 POC Glucometer 91 149 148 03/24/18 03/25/18 03/25/18 16:53 06:04 16:48 POC Glucometer 245 134 245 03/26/18 03/26/18 03/27/18 05:53 16:21 05:59 POC Glucometer 116 269 256 03/27/18 03/28/18 03/28/18 16:40 06:25 16:50 POC Glucometer 300 156 317 03/29/18 03/29/18 03/30/18 06:34 16:56 06:03 POC Glucometer 263 340 272 03/30/18 03/31/18 03/31/18 16:49 05:50 16:42 POC Glucometer 359 265 322 04/01/18 04/01/18 04/02/18 06:11 16:54 06:22 POC Glucometer 327 342 250 04/02/18 04/02/18 04/03/18 16:34 21:07 06:04 POC Glucometer 422 279 333 04/03/18 04/03/18 04/03/18 11:59 16:57 21:07 POC Glucometer 297 336 342 04/04/18 04/04/18 04/04/18 05:59 11:59 16:42 POC Glucometer 279 344 349 04/04/18 04/05/18 04/05/18 20:59 05:57 11:55 POC Glucometer 261 311 422 04/05/18 04/06/18 04/06/18 16:37 06:17 11:35 POC Glucometer 321 279 423 04/06/18 04/07/18 04/07/18 16:25 06:13 11:46 POC Glucometer 368 272 368 04/07/18 04/08/18 04/08/18 16:19 06:29 12:02 POC Glucometer 249 310 392 04/08/18 04/09/18 04/09/18 16:43 06:15 11:56 POC Glucometer 314 361 292 04/09/18 04/09/18 04/10/18 16:49 21:36 06:42 POC Glucometer 285 350 355 04/10/18 04/10/18 04/10/18 11:58 16:30 21:21 POC Glucometer 353 233 308 04/11/18 04/11/18 04/11/18 05:57 12:01 16:54 POC Glucometer 284 337 296 04/11/18 04/12/18 04/12/18 22:52 06:05 11:55 POC Glucometer 427 251 372 04/12/18 04/12/18 04/13/18 16:32 21:03 06:15 POC Glucometer 281 301 364 04/13/18 04/13/18 04/14/18 16:35 21:04 06:02 POC Glucometer 372 419 368 04/14/18 04/14/18 04/14/18 12:05 16:33 21:03 POC Glucometer 406 298 386 04/15/18 04/15/18 04/15/18 06:09 11:36 16:35 POC Glucometer 373 398 297 04/15/18 04/16/18 04/16/18 20:25 06:17 11:56 POC Glucometer 278 364 282 04/16/18 04/16/18 04/17/18 17:00 22:14 06:03 POC Glucometer 312 303 319 04/17/18 11:58 POC Glucometer 383 Vital Signs Temperature 97.7 F 04/17/18 06:46 Pulse Rate 80 04/17/18 06:46 Respiratory Rate 18 04/17/18 06:46 Blood Pressure 100/63 04/17/18 06:46 O2 Sat by Pulse Oximetry (%) PE: ALERT AND ORIENTED X 3 SKIN WARM AND DRY, AFEBRILE EXT LEFT FOOT ANTERIOR FOOT WOUND, HEALING, NO DISCHARGE OR ODOR PRESENT AMB WITH CANE +ANXIOUS A/P: SUBOXONE MAINTENANCE TREATMENT DM UNCONTROLLED WITH HYPERGLYCEMIA LEFT FOOT WOUND WILL HOLD D/C FOR MEDICAL MONITORING OF WOUND AND DIABETES. CONTINUE CURRENT SUBOXONE ORDER/DOSE ADJUST INSULIN AND MONITOR BGM REFER TO COUNSELING TO CONTINUE APPLICATION PROCESS FOR INTERMEDIATE TREATMENT PROGRAM MONITOR CLINICALLY
[2018-04-17] MEDS: THIAMINE HCL 100 MG TABLET (FP) PO SCH (21:49)
[2018-04-17] MEDS: MELATONIN 5 MG TABLETS PO PRN (21:49)
[2018-04-17] MEDS: QUEtiapine FUMARATE 100 MG TABLET (FP) PO SCH (21:49)
[2018-04-17] MEDS: INSULIN (LEVEMIR) 100 UNITS/ML UNITS SQ SCH (21:52)
[2018-04-18] MEDS ORDERED: INSULIN (NOVOLOG) ASPART 100 UNITS/ML 10ML VIAL ONE (06:40)
[2018-04-18] MEDS: INSULIN SLIDING SCALE (NOVOLOG) 1 VIAL SQ SCH ×3 (06:42→16:50)
[2018-04-18] MEDS: metFORMIN HCL 500 MG TABLET (FP) PO SCH ×2 (06:42→16:50)
[2018-04-18] MEDS: NICOTINE 21 MG/24 HOURS TOPICAL PATCH TD SCH (10:24)
[2018-04-18] MEDS: PRENATAL VITAMINS W/ FOLIC ACID TABLET (FP) PO SCH (10:24)
[2018-04-18] MEDS: BUPRENORPHINE/NALOXONE 8 MG/2 MG FILM PACKET SL SCH ×2 (10:24→21:13)
[2018-04-18] MEDS: MINERAL OIL/PETROLAT/WATER TOPICAL CREAM 113 GM JAR TP SCH ×2 (10:25→21:14)
[2018-04-18] MEDS: BACITRACIN 0.9 GM PACKET TP SCH ×2 (10:26→21:14)
[2018-04-18] MEDS: INSULIN (LEVEMIR) 100 UNITS/ML UNITS SQ SCH (21:12)
[2018-04-18] MEDS: THIAMINE HCL 100 MG TABLET (FP) PO SCH (21:13)
[2018-04-18] MEDS: QUEtiapine FUMARATE 100 MG TABLET (FP) PO SCH (21:13)
[2018-04-18] MEDS: MELATONIN 5 MG TABLETS PO PRN (21:13)
[2018-04-18] MEDS ORDERED: INSULIN (NOVOLOG) ASPART 100 UNITS/ML 10ML VIAL SQ ONE (22:25)
--- NOTE | 2018-04-18 22:33 | PN ---
[facility] Progress Note Note: Patient's blood sugar level was B/s 445mg/dl. 14 units of Levemir given as per KYLIE De La Fuente Vital Signs Temperature 98.1 F 04/18/18 06:46 Pulse Rate 85 04/18/18 06:46 Respiratory Rate 18 04/18/18 06:46 Blood Pressure 126/67 04/18/18 06:46 O2 Sat by Pulse Oximetry (%) Action: Additional 6 units of Novolog ordered
[2018-04-19] MEDS ORDERED: INSULIN (NOVOLOG) ASPART 100 UNITS/ML 10ML VIAL ONE ×2 (06:29→16:33)
[2018-04-19] MEDS: INSULIN SLIDING SCALE (NOVOLOG) 1 VIAL SQ SCH ×3 (06:31→17:01)
[2018-04-19] MEDS: metFORMIN HCL 500 MG TABLET (FP) PO SCH ×2 (06:31→16:59)
[2018-04-19] MEDS: NICOTINE 21 MG/24 HOURS TOPICAL PATCH TD SCH (09:32)
[2018-04-19] MEDS: PRENATAL VITAMINS W/ FOLIC ACID TABLET (FP) PO SCH (09:32)
[2018-04-19] MEDS: BUPRENORPHINE/NALOXONE 8 MG/2 MG FILM PACKET SL SCH ×2 (09:32→21:14)
[2018-04-19] MEDS: MINERAL OIL/PETROLAT/WATER TOPICAL CREAM 113 GM JAR TP SCH ×2 (09:33→21:12)
[2018-04-19] MEDS: BACITRACIN 0.9 GM PACKET TP SCH ×2 (09:33→21:14)
[2018-04-19] MEDS: IBUPROFEN 400 MG TABLET (FP) PO PRN (12:06)
[2018-04-19] MEDS: INSULIN (LEVEMIR) 100 UNITS/ML UNITS SQ SCH (21:13)
[2018-04-19] MEDS: THIAMINE HCL 100 MG TABLET (FP) PO SCH (21:14)
[2018-04-19] MEDS: QUEtiapine FUMARATE 100 MG TABLET (FP) PO SCH (21:14)
[2018-04-19] MEDS: MELATONIN 5 MG TABLETS PO PRN (21:16)
[2018-04-20] MEDS: metFORMIN HCL 500 MG TABLET (FP) PO SCH ×2 (06:42→16:45)
[2018-04-20] MEDS ORDERED: INSULIN (NOVOLOG) ASPART 100 UNITS/ML 10ML VIAL ONE ×3 (06:44→16:44)
[2018-04-20] MEDS: INSULIN SLIDING SCALE (NOVOLOG) 1 VIAL SQ SCH ×3 (06:45→16:44)
[2018-04-20] MEDS ORDERED: PT OWN MED DRAWER 7, Y5N ONE (09:36)
[2018-04-20] MEDS: NICOTINE 21 MG/24 HOURS TOPICAL PATCH TD SCH (09:36)
[2018-04-20] MEDS: PRENATAL VITAMINS W/ FOLIC ACID TABLET (FP) PO SCH (09:36)
[2018-04-20] MEDS: BUPRENORPHINE/NALOXONE 8 MG/2 MG FILM PACKET SL SCH ×2 (09:36→21:30)
[2018-04-20] MEDS: BACITRACIN 0.9 GM PACKET TP SCH ×2 (09:36→21:30)
[2018-04-20] MEDS: MINERAL OIL/PETROLAT/WATER TOPICAL CREAM 113 GM JAR TP SCH ×2 (09:37→21:30)
[2018-04-20] MEDS: INSULIN (LEVEMIR) 100 UNITS/ML UNITS SQ SCH (21:30)
[2018-04-20] MEDS: QUEtiapine FUMARATE 100 MG TABLET (FP) PO SCH (21:30)
[2018-04-20] MEDS: THIAMINE HCL 100 MG TABLET (FP) PO SCH (21:30)
[2018-04-20] MEDS: MELATONIN 5 MG TABLETS PO PRN (21:31)
[2018-04-21] MEDS: metFORMIN HCL 500 MG TABLET (FP) PO SCH ×2 (06:31→16:21)
[2018-04-21] MEDS: INSULIN SLIDING SCALE (NOVOLOG) 1 VIAL SQ SCH ×3 (06:32→16:20)
[2018-04-21] MEDS ORDERED: INSULIN (NOVOLOG) ASPART 100 UNITS/ML 10ML VIAL ONE ×3 (06:49→16:20)
[2018-04-21] MEDS: NICOTINE 21 MG/24 HOURS TOPICAL PATCH TD SCH (10:04)
[2018-04-21] MEDS: MINERAL OIL/PETROLAT/WATER TOPICAL CREAM 113 GM JAR TP SCH ×2 (10:04→21:09)
[2018-04-21] MEDS: PRENATAL VITAMINS W/ FOLIC ACID TABLET (FP) PO SCH (10:04)
[2018-04-21] MEDS: BUPRENORPHINE/NALOXONE 8 MG/2 MG FILM PACKET SL SCH ×2 (10:04→21:08)
[2018-04-21] MEDS: BACITRACIN 0.9 GM PACKET TP SCH ×2 (10:15→21:09)
[2018-04-21] MEDS: THIAMINE HCL 100 MG TABLET (FP) PO SCH (21:08)
[2018-04-21] MEDS: QUEtiapine FUMARATE 100 MG TABLET (FP) PO SCH (21:08)
[2018-04-21] MEDS: INSULIN (LEVEMIR) 100 UNITS/ML UNITS SQ SCH (21:08)
[2018-04-21] MEDS: MELATONIN 5 MG TABLETS PO PRN (21:09)
[2018-04-22] MEDS ORDERED: INSULIN (NOVOLOG) ASPART 100 UNITS/ML 10ML VIAL ONE ×2 (06:25→11:56)
[2018-04-22] MEDS: metFORMIN HCL 500 MG TABLET (FP) PO SCH ×2 (06:43→16:47)
[2018-04-22] MEDS: INSULIN SLIDING SCALE (NOVOLOG) 1 VIAL SQ SCH ×3 (06:43→16:50)
[2018-04-22] MEDS: MINERAL OIL/PETROLAT/WATER TOPICAL CREAM 113 GM JAR TP SCH ×2 (10:45→21:54)
[2018-04-22] MEDS: BACITRACIN 0.9 GM PACKET TP SCH ×2 (10:45→21:51)
[2018-04-22] MEDS: PRENATAL VITAMINS W/ FOLIC ACID TABLET (FP) PO SCH (10:45)
[2018-04-22] MEDS: BUPRENORPHINE/NALOXONE 8 MG/2 MG FILM PACKET SL SCH ×2 (10:45→21:51)
[2018-04-22] MEDS: NICOTINE 21 MG/24 HOURS TOPICAL PATCH TD SCH (10:46)
[2018-04-22] MEDS: THIAMINE HCL 100 MG TABLET (FP) PO SCH (21:51)
[2018-04-22] MEDS: MELATONIN 5 MG TABLETS PO PRN (21:51)
[2018-04-22] MEDS: QUEtiapine FUMARATE 100 MG TABLET (FP) PO SCH (21:51)
[2018-04-22] MEDS: INSULIN (LEVEMIR) 100 UNITS/ML UNITS SQ SCH (21:54)
[2018-04-23] MEDS: INSULIN SLIDING SCALE (NOVOLOG) 1 VIAL SQ SCH (06:26)
[2018-04-23] MEDS: metFORMIN HCL 500 MG TABLET (FP) PO SCH (06:26)
[2018-04-23 07:15] VITALS: BP 126/72; PULSE 75; TEMP 97.6
[2018-04-23] MEDS ORDERED: PT OWN MED DRAWER 7, Y5N ONE (09:20)
[2018-04-23] MEDS: PRENATAL VITAMINS W/ FOLIC ACID TABLET (FP) PO SCH (09:20)
[2018-04-23] MEDS: BUPRENORPHINE/NALOXONE 8 MG/2 MG FILM PACKET SL SCH (09:20)
--- NOTE | 2018-04-23 09:22 | PN ---
[facility] Progress Note Note: REHAB DISCHARGE NOTE: PATIENT FOR DISCHARGE TODAY FROM REHAB. PATIENT IS ALERT AND ORIENTED X 3, MEDICALLY STABLE. BLOOD SUGAR 148 THIS MORNING. PATIENT DENIES SI/HI. SCHEDULED TO HAVE INTAKE THIS MORNING AT [facility]. PATIENT ENCOURAGED TO CONTINUE WITH OUTPATIENT TREATMENT TO PREVENT RELAPSE AND ENCOURAGED TO FOLLOW UP WITH PCP TO CONTINUE MEDICAL MANAGEMENT. LEFT FOOT DRESSING CHANGED THIS MORNING BY RN. HEALING WELL. SUBOXONE AND DIABETIC MEDICATIONS SENT TO [facility]. Vital Signs Temperature 97.6 F 04/23/18 07:14 Pulse Rate 75 04/23/18 07:14 Respiratory Rate 18 04/23/18 07:14 Blood Pressure 126/72 04/23/18 07:14 O2 Sat by Pulse Oximetry (%) Laboratory Tests 03/21/18 03/22/18 03/22/18 16:58 06:50 16:44 POC Glucometer 91 86 138 03/23/18 03/23/18 03/24/18 06:29 16:42 06:32 POC Glucometer 91 149 148 03/24/18 03/25/18 03/25/18 16:53 06:04 16:48 POC Glucometer 245 134 245 03/26/18 03/26/18 03/27/18 05:53 16:21 05:59 POC Glucometer 116 269 256 03/27/18 03/28/18 03/28/18 16:40 06:25 16:50 POC Glucometer 300 156 317 03/29/18 03/29/18 03/30/18 06:34 16:56 06:03 POC Glucometer 263 340 272 03/30/18 03/31/18 03/31/18 16:49 05:50 16:42 POC Glucometer 359 265 322 04/01/18 04/01/18 04/02/18 06:11 16:54 06:22 POC Glucometer 327 342 250 04/02/18 04/02/18 04/03/18 16:34 21:07 06:04 POC Glucometer 422 279 333 04/03/18 04/03/18 04/03/18 11:59 16:57 21:07 POC Glucometer 297 336 342 04/04/18 04/04/18 04/04/18 05:59 11:59 16:42 POC Glucometer 279 344 349 04/04/18 04/05/18 04/05/18 20:59 05:57 11:55 POC Glucometer 261 311 422 04/05/18 04/06/18 04/06/18 16:37 06:17 11:35 POC Glucometer 321 279 423 04/06/18 04/07/18 04/07/18 16:25 06:13 11:46 POC Glucometer 368 272 368 04/07/18 04/08/18 04/08/18 16:19 06:29 12:02 POC Glucometer 249 310 392 04/08/18 04/09/18 04/09/18 16:43 06:15 11:56 POC Glucometer 314 361 292 04/09/18 04/09/18 04/10/18 16:49 21:36 06:42 POC Glucometer 285 350 355 04/10/18 04/10/18 04/10/18 11:58 16:30 21:21 POC Glucometer 353 233 308 04/11/18 04/11/18 04/11/18 05:57 12:01 16:54 POC Glucometer 284 337 296 04/11/18 04/12/18 04/12/18 22:52 06:05 11:55 POC Glucometer 427 251 372 04/12/18 04/12/18 04/13/18 16:32 21:03 06:15 POC Glucometer 281 301 364 04/13/18 04/13/18 04/14/18 16:35 21:04 06:02 POC Glucometer 372 419 368 04/14/18 04/14/18 04/14/18 12:05 16:33 21:03 POC Glucometer 406 298 386 04/15/18 04/15/18 04/15/18 06:09 11:36 16:35 POC Glucometer 373 398 297 04/15/18 04/16/18 04/16/18 20:25 06:17 11:56 POC Glucometer 278 364 282 04/16/18 04/16/18 04/17/18 17:00 22:14 06:03 POC Glucometer 312 303 319 04/17/18 04/17/18 04/17/18 11:58 16:49 21:51 POC Glucometer 383 243 387 04/18/18 04/18/18 04/18/18 05:53 11:54 16:49 POC Glucometer 358 399 332 04/18/18 04/19/18 04/19/18 21:10 06:07 11:32 POC Glucometer 445 375 333 04/19/18 04/19/18 04/20/18 16:59 21:13 06:42 POC Glucometer 316 290 284 04/20/18 04/20/18 04/20/18 11:42 16:42 20:30 POC Glucometer 339 323 296 04/21/18 04/21/18 04/21/18 06:30 11:27 16:18 POC Glucometer 364 228 295 04/21/18 04/22/18 04/22/18 20:22 06:19 11:54 POC Glucometer 405 246 253 04/22/18 04/22/18 04/23/18 16:46 21:49 06:11 POC Glucometer 325 249 148
[2018-04-23] MEDS: NICOTINE 21 MG/24 HOURS TOPICAL PATCH TD SCH (09:24)
[2018-04-23] MEDS: MINERAL OIL/PETROLAT/WATER TOPICAL CREAM 113 GM JAR TP SCH (09:24)
[2018-04-23] MEDS: BACITRACIN 0.9 GM PACKET TP SCH (09:25)
== END 2018-04-23 09:40 | disposition home or self-care (01) | DRG 772 ==
LOC: YASAS 14:43 → Y3W 14:45
PROVIDERS: ADMIT Psychiatry & Neurology Psychiatry; ATTEND Psychiatry & Neurology Psychiatry
PROC: HZ42ZZZ Group Counseling for Substance Abuse Treatment, Cognitive-Behavioral (ICD-10-PCS; principal; 2018-03-21)
DX: F11.20 Opioid dependence, uncomplicated (principal); F14.20 Cocaine dependence, uncomplicated; F17.210 Nicotine dependence, cigarettes, uncomplicated; F25.9 Schizoaffective disorder, unspecified; F19.282 Other psychoactive substance dependence with psychoactive substance-induced sleep disorder; E11.65 Type 2 diabetes mellitus with hyperglycemia; Z79.4 Long term (current) use of insulin; B18.2 Chronic viral hepatitis C; S91.302A Unspecified open wound, left foot, initial encounter; R26.89 Other abnormalities of gait and mobility; Z99.89 Dependence on other enabling machines and devices
CPT/HCPCS: 82962